=== PATIENT | female | born 1935 | race Caucasian/White ===

== ENCOUNTER 2016-08-31 17:25 | Inpatient (IN) | payer OTHER ==
[~2016-08-31] VITALS: Ht 157.5 cm; Wt 98.2 kg
[~2016-08-31 17:25] MED LIST: ALBU1NEB10 INH; ASCA500 PO; ASPEC325 PO; CLR10 PO; CLX20 PO; CYAN10005 PO; DOCU-94 PO; EVS60 PO; FRRG PO; GABA1CAP4 PO; GLC5 PO; GLC500 PO; HYDR-5688 PO; LEVO175T3 PO; LOSA1TAB38 PO; MAGN1CAP2 PO; MELA3TAB PO; METO25TA56 PO; MULT-506 PO; NRN300 PO; OXYB5TAB PO; OXYC-409 PO; POTA10CA28 PO; PRLSR20 PO; SITA50TA3 PO; VEGETABLE PO; ZCR10 PO; [UNRECOGNIZED DRUG - CODE] PO
[2016-08-31] MEDS ORDERED: LEVO112T4 PO (17:49)
[2016-08-31] MEDS ORDERED: GLCSR5 PO (17:49)
[2016-08-31] MEDS ORDERED: ADVIN25/60 PO (17:49)
[2016-08-31] MEDS ORDERED: NITROGLYCERIN OINT 2% 1GM PACKET EXT STA (17:55)
[2016-08-31 18:20] LABS: BASO % 0.3 %; BASO ABS # 0.03 K/uL (0-0.2); COMPLETE YES; EOS % 2.2 %; HEMATOCRIT 34.8 % (37-47); IG% 0.3 %; LYMPH % 32.2 %; LYMPH ABS # 2.84 K/uL (1.2-3.4); MEAN CELL VOLUME 88.1 fL (80-100); MEAN CORPUSCULAR HEMOGLOBIN 29.6 pg (25-34); MEAN CORPUSCULAR HGB CONC 33.6 g/dl (32-36); MEAN PLATELET VOLUME 9.3 fL (7.4-10.4); PLATELET COUNT 267 K/uL (130-400); RED BLOOD COUNT 3.95 M/uL (4.2-5.4); WHITE BLOOD COUNT 8.81 K/uL (4.8-10.8)
[2016-08-31 18:32] LABS: INR 1.1 (0.9-1.1); PARTIAL THROMBOPLASTIN RATIO 1.1; PROTHROMBIN TIME (PATIENT) 11.5 SECONDS (9.0-12.0)
[2016-08-31] MEDS ORDERED: NYSS/ PO (18:32)
[2016-08-31] MEDS ORDERED: CHOL1000 PO (18:32)
[2016-08-31] MEDS ORDERED: ASPI81TA28 PO (18:32)
[2016-08-31] MEDS ORDERED: NITROGLYCERIN OINT 2% 1GM PACKET ONE (18:32)
[2016-08-31 18:38] LABS: ALT/SGPT 39 U/L (12-78); BLOOD UREA NITROGEN 12 mg/dl (7-18); BUN/CREATININE RATIO 11.9 (10-20); CALCIUM 9.5 mg/dl (8.5-10.1); CARBON DIOXIDE 27 mmol/L (21-32); CHLORIDE 98 mmol/L (98-107); GLUCOSE 144 mg/dl (70-99); POTASSIUM 4.4 mmol/L (3.5-5.1); SODIUM 134 mmol/L (136-145)
--- NOTE | 2016-08-31 18:40 | DIAGNOSTIC IMAGING REPORT ---
ABDOMEN 2VIEW W/PA CHEST RTN CLINICAL HISTORY: Shortness of breath and abdominal pain COMPARISON STUDY: Chest x-ray dated 12/03/2007 FINDINGS: The heart is enlarged. There is elevation of the interstitium. There is distention of the azygos vein. The findings are most consistent with congestive failure. There is no free air. There are postsurgical changes present within the lumbar spine. There is evidence for prior spinal fusion. There is scattered stool within the colon. There are no transition zones indicate bowel obstruction. There is an old left ischio pubic ring fracture. There are nonspecific clustered calcifications in the right inferior peroneal/gluteal region. IMPRESSION: 1. No evidence of bowel obstruction. No evidence of free air 2. Congestive heart failure pattern Electronically signed by: Abhay Ferreira M.D. 08/31/2016 6:38 PM Dictated Date/Time: 08/31/2016 6:37 PM
[2016-08-31 18:43] LABS: ALB/GLOB RATIO 0.9 (0.9-2); ALKALINE PHOSPHATASE 66 U/L (45-117); AST/SGOT 36 U/L (15-37)
[2016-08-31] MEDS ORDERED: FUROSEMIDE INJ 20 MG in SYRINGE 0 ML IV SCH (19:45)
--- NOTE | 2016-08-31 20:31 | History and Physical ---
History & Physical Date & Time of Service: Aug 31, 2016 at 20:31 Chief Complaint: Fluid Retention, Congestion, Nausea, Loss Of Appet Primary Care Physician: Gregorio Saywer MD History of Present Illness Source: patient, family This is an 80 y/o F with a pmh of COPD, DM, HTN, CAD, Surgically repaired brain aneurysm (2003), chronic pain who presents with a several day history of progressively worsening swelling in her lower extremities and shortness of breath. Her son had taken her to her PCP's office 2 days ago as a follow up visit from her ER visit to [place] 3 weeks ago for gastroenteritis and at that point she did not look volume overloaded. However, today, her home health nurse at [facility], thought her legs were swollen and she was short of breath. He is unsure about weight gain. She does not have an official diagnosis of CHF. Her son also reports that she has fallen about 4 times in the past 2 weeks. Two episodes; may have been syncopal. The Patient also complains that her abdominal girth has increased. She has had poor appetite. Otherwise, denies chest pain, abdominal pain, nausea/ vomiting, fevers chills, urinary symptoms, changes in bowel habits, melena/hematochezia Never smoker. Past Medical/Surgical History Medical Problems: (1) Asthma Status: Chronic (2) COPD (chronic obstructive pulmonary disease) Status: Chronic Social History Smoking Status: Unknown if Ever Smoked Alcohol Use: none Drug Use: none Housing status: lives alone Occupational Status: retired Immunizations History of Influenza Vaccine: Yes Influenza Vaccine Date: Feb 25, 2007 History of Tetanus Vaccine?: Unknown History of Pneumococcal: Yes Pneumococcal Date: Feb 25, 2005 History of Hepatitis B Vaccine: Unknown Multi-Drug Resistant Organisms History of MDRO: Yes Allergies Coded Allergies: No Known Allergies (Verified , 08/31/16) Home Medications Scheduled Ascorbic Acid (Vitamin C), 500 MG PO QAM Aspirin (Aspirin Ec), 81 MG PO DAILY Cholecalciferol (Vitamin D3), 5,000 INTER.UNIT PO DAILY Citalopram (Citalopram Hydrobromide), 20 MG PO DAILY Cyanocobalamin (Vitamin B-12), 1,000 MCG PO DAILY Fluticasone Prop/Salmeterol (Advair Diskus 250/50 60 Dose), 1 PUFF PO BID Gabapentin (Gabapentin), 300 MG PO QAM Gabapentin (Gabapentin), 600 MG PO QPM Glipizide (Glipizide Xl), 5 MG PO DAILY Levothyroxine Sodium (Levothyroxine Sodium), 112 MCG PO QAM Loratadine (Claritin), 10 MG PO DAILY Losartan Potassium (Cozaar), 100 MG PO DAILY Magnesium Oxide (Mg Supplement (Magnesium), 400 MG PO BID Metformin HCl (Metformin HCl), 1,000 MG PO DAILY Metoprolol Tartrate (Lopressor) (Lopressor), 50 MG PO BID Multivitamin (Multivitamin), 1 TAB PO DAILY Nystatin (Nystatin Suspension), 1 TSP PO DAILY Omeprazole (Prilosec), 20 MG PO BID Oxybutynin Chloride (Oxybutynin Chloride Er), 10 MG PO DAILY Potassium Chloride (Micro-K Ext Rel), 10 MEQ PO DAILY Simvastatin (Simvastatin), 10 MG PO HS Sitagliptin (Januvia), 50 MG PO DAILY Scheduled PRN Albuterol Sulf (Albuterol Sulfate 0.083% For Inh), 3 ML INH Q4H PRN for Shortness of Breath Docusate Sodium (Colace), 100 MG PO DAILY PRN for Constipation Review of Systems Constitutional: No chills, No fever Eyes: No worsening of vision ENT: No hearing loss Respiratory: + dyspnea at rest, + dyspnea on exertion, + shortness of breath, No cough, No sputum, No wheezing Cardiovascular: No chest pain Abdomen: No nausea, No pain, No vomiting Genitourinary - Female: No dysuria, No urinary frequency, No urinary urgency Physical Exam Vital Signs Date Time Temp Pulse Resp B/P Pulse Ox O2 Delivery O2 Flow Rate FiO2 08/31/16 18:50 58 18 173/77 94 Room Air 2.0 08/31/16 18:00 58 08/31/16 17:55 94 Room Air 08/31/16 17:55 94 Nasal Cannula 2.0 08/31/16 17:51 59 18 207/99 94 Nasal Cannula 2.0 08/31/16 17:33 36.8 64 22 212/98 92 Room Air General Appearance: no apparent distress, + obese Head: normocephalic, atraumatic Eyes: PERRL, EOMI Neck: supple, no adenopathy Respiratory/Chest: no respiratory distress, no accessory muscle use, + decreased breath sounds, + crackles Cardiovascular: regular rate, rhythm, no JVD, + systolic murmur Abdomen/GI: normal bowel sounds, non tender, soft, + pertinent finding ( excoriations, erythema, whitish residue below panus) Back: no CVA tenderness Extremities/Musculoskelatal: no calf tenderness, + pedal edema (2+ pitting, below knees) Neurologic/Psych: marketing services vice president II-XII nml as tested, no motor/sensory deficits, alert, oriented x 3 Diagnostics Laboratory Results Results Past 24 Hours Test 08/31/16 17:55 Range/Units White Blood Count 8.81 4.8-10.8 K/uL Red Blood Count 3.95 4.2-5.4 M/uL Hemoglobin 11.7 12.0-16.0 g/dL Hematocrit 34.8 37-47 % Mean Corpuscular Volume 88.1 80-100 fL Mean Corpuscular Hemoglobin 29.6 25-34 pg Mean Corpuscular Hemoglobin Concent 33.6 32-36 g/dl Platelet Count 267 130-400 K/uL Mean Platelet Volume 9.3 7.4-10.4 fL Neutrophils (%) (Auto) 55.0 % Lymphocytes (%) (Auto) 32.2 % Monocytes (%) (Auto) 10.0 % Eosinophils (%) (Auto) 2.2 % Basophils (%) (Auto) 0.3 % Neutrophils # (Auto) 4.84 1.4-6.5 K/uL Lymphocytes # (Auto) 2.84 1.2-3.4 K/uL Monocytes # (Auto) 0.88 0.11-0.59 K/uL Eosinophils # (Auto) 0.19 0-0.5 K/uL Basophils # (Auto) 0.03 0-0.2 K/uL RDW Standard Deviation 51.9 36.4-46.3 fL RDW Coefficient of Variation 16.0 11.5-14.5 % Immature Granulocyte % (Auto) 0.3 % Immature Granulocyte # (Auto) 0.03 0.00-0.02 K/uL Prothrombin Time 11.5 9.0-12.0 SECONDS Prothromb Time International Ratio 1.1 0.9-1.1 Activated Partial Thromboplast Time 27.7 21.0-31.0 SECONDS Partial Thromboplastin Ratio 1.1 Sodium Level 134 136-145 mmol/L Potassium Level 4.4 3.5-5.1 mmol/L Chloride Level 98 98-107 mmol/L Carbon Dioxide Level 27 21-32 mmol/L Anion Gap 9.0 3-11 mmol/L Blood Urea Nitrogen 12 7-18 mg/dl Creatinine 1.00 0.60-1.20 mg/dl Estimated GFR () 60.8 Estimated GFR (Non- 52.4 BUN/Creatinine Ratio 11.9 10-20 Random Glucose 144 70-99 mg/dl Calcium Level 9.5 8.5-10.1 mg/dl Total Bilirubin 0.5 0.2-1 mg/dl Aspartate Amino Transf (AST/SGOT) 36 15-37 U/L Alanine Aminotransferase (ALT/SGPT) 39 12-78 U/L Alkaline Phosphatase 66 45-117 U/L Troponin I < 0.015 0-0.045 ng/ml Pro-B-Type Natriuretic Peptide 2412 0-1800 pg/ml Total Protein 7.2 6.4-8.2 gm/dl Albumin 3.5 3.4-5.0 gm/dl Globulin 3.7 2.5-4.0 gm/dl Albumin/Globulin Ratio 0.9 0.9-2 Impression Assessment and Plan Fluid overload; probable undiagnosed CHF ECHO Lasix 40 qam as long kidney function remains stable- can switch to BID if not diuresing enough Daily weights strict i/o Chest Xray and lung exam with evidence of HF troponin x 3 EKG AM Ambulatory dysfunction PT/OT Thrush Nystatin swish and swallow HTN: Continue Losartan DM ISS Accuchecks Lantus 10 units on hold, if needed based on blood sugars Hold glipizide Hypothyroid TSH elevated at 6 Recommend outpatient follow up and adjustment of dose continue levothyroxine COPD Continue albuterol and Advair CAD Continue aspirin, simvastatin, metoprolol DVT: Lovenox Code: Full Assessment and Plan Attending Addendum: This I have physically seen and examined this patient, have directed their medical care, have supervised the medical residents activities, and agree with the H&P as noted above, with the following changes: The patient is awake, alert and oriented 3, normocephalic and atraumatic, lying in bed and in no acute distress. HEENT--PERRL, EOMI, mucous membranes and oropharynx with thrush. Neck--supple, no JVD or bruits, thyroid normal, trachea midline, no adenopathy. Heart--normal S1 and S2, SM, no rubs or gallops. Lungs--crackles at the bases bilaterally, no respiratory distress, no accessory muscle use. Abdomen--normal bowel sounds and soft, nontender and nondistended, no hernias or masses, no organomegaly. Extremities--no cyanosis, clubbing. 2+ pretibial and pedal pitting edema. There are good distal pulses b/l. Dermatologic--excoriations and erythema below skinfolds and pannus. Neurologic--cranial nerves II through XII grossly intact, motor and sensory examination normal. Rheumatologic--normal range of motion, nontender, muscles and joints. Psychiatric--normal affect. Assessment and Plan: Fluid overload/likely previously undiagnosed CHF/hypertension--admitted to the telemetry unit for serial cardiac enzymes, cardiac rhythm monitoring and a 2-D echocardiogram with Dopplers. Given Lasix 40 mg IV tonight, change to by mouth in the a.m. if adequate diuresis. Follow serial chest x-rays and EKGs. Continue metoprolol tartrate 50 mg by mouth twice a day, losartan 100 mg by mouth daily, potassium chloride 10 mEq by mouth daily, mag oxide 40 mg by mouth twice a day, and enteric-coated aspirin 81 mg by mouth daily. Thrush--placed on nystatin swish and swallow. Diabetes mellitus--hold Lantus, metformin, Januvia and glipizide. Place on Accu -Cheks before meals and at bedtime with NovoLog coverage. Asthma--continue Advair discus 250/50, 1 inhalation twice a day Hypothyroidism--continue levothyroxin 112 g by mouth every morning. May need adjustment in the outpatient setting for a TSH of 6. GERD--change omeprazole 20 mg by mouth twice a day pantoprazole 40 mg by mouth twice a day. Peripheral neuropathy--continue gabapentin 3 mg by mouth every morning and 6 mg by mouth every afternoon. Hypercholesterolemia--continue simvastatin 10 mg by mouth at bedtime. Bladder spasm-- continue oxybutynin chloride ER 10 mg by mouth daily. Vitamin B12 deficiency--continue supplement 1000 g by mouth daily. Depression--continue citalopram 20 mg by mouth daily.
[2016-08-31] MEDS ORDERED: DOCUSATE SODIUM 100 MG CAP PO PRN (20:45)
[2016-08-31] MEDS ORDERED: MAGNESIUM HYDROXIDE SUSP 30 ML UDC PO PRN (20:45)
[2016-08-31] MEDS ORDERED: ALBUTEROL 0.083% NEBU SOLN 3 ML VIAL INH PRN (20:45)
[2016-08-31] MEDS ORDERED: ALUMINUM/MAGNESIUM/SIMETH (MAALOX MAX) 30 ML UDC PO PRN (20:45)
[2016-08-31] MEDS ORDERED: HydrALAZINE HCL 20 MG/ML VIAL IV. PRN (20:45)
[2016-08-31] MEDS ORDERED: ACETAMINOPHEN 325 MG TAB PO PRN (20:45)
[2016-08-31] MEDS ORDERED: ONDANSETRON INJ 2 MG/ML 2 ML VIAL IV PRN (20:45)
[2016-08-31] MEDS ORDERED: NITROGLYCERIN 0.4 MG SL PER TAB CHARGE SL PRN (20:45)
[2016-08-31] MEDS ORDERED: POLYETHYLENE (MIRALAX) 17 GM PACK PO PRN (20:45)
[2016-08-31] MEDS ORDERED: MoRPHine SULFATE 2 MG/ML CARP IV PRN (20:45)
[2016-08-31 20:50] LABS: URINE APPEARANCE CLEAR (CLEAR); URINE BILIRUBIN NEG (NEG); URINE COLOR YELLOW; URINE NITRITE NEG (NEG); UROBILINOGEN NEG (NEG)
[2016-08-31 20:57] LABS: MANUAL MICROSCOPIC REQUIRED? NO; REVIEW REQ? NO
[2016-08-31] MEDS ORDERED: MAGNESIUM OXIDE PO SCH (21:00)
[2016-08-31 21:56] VITALS: BP 178/94; PULSE 70; TEMP 36.8; O2SAT 97; Ht 157.5 cm; Wt 98.2 kg
[2016-08-31] MEDS ORDERED: PATIENT'S HEIGHT AND/OR WEIGHT NEEDED SCH (22:00)
[2016-08-31] MEDS: INSULIN ASPART 100 UNITS/ML 3 ML PEN SC SCH (22:33)
[2016-08-31] MEDS: FLUTICASONE/SALMETEROL 250/50 (ADVAIR) 14 PUFF/1 INHALER INH SCH (22:33)
[2016-08-31] MEDS ORDERED: NYSTATIN POWDER 15GM BTL EXT PRN (22:45)
[2016-08-31] MEDS: GABAPENTIN 300 MG CAP PO SCH (22:49)
[2016-08-31] MEDS: SIMVASTATIN 10 MG TAB PO SCH (22:49)
[2016-08-31 23:00] VITALS: BP 162/85; PULSE 63; TEMP 37.5; O2SAT 98
[2016-09-01] VITALS (7 sets, daily range): BP systolic 111–166; BP diastolic 59–104; PULSE 59–69; TEMP 36.4–37.1; O2SAT 91–99
--- NOTE | 2016-09-01 00:45 | EMERGENCY ROOM VISIT NOTE ---
History Report prepared by Adriana: Corinne Rivera Under the Supervision of: Dr. Aiden Li D.O. First contact with patient: 17:37 Chief Complaint: SWELLING TO EXTREMITY Stated Complaint: FLUID RETENTION, CONGESTION, NAUSEA, LOSS OF APPET History of Present Illness The patient is a 80 year old female who presents to the Emergency Room with complaints of constant feet swelling beginning 2 days ago. The patient's son reports that the patient lives in a personal custodial and was seen in the ER recently for a GI bug and dehydration. He notes that 1 week ago the patient fell 4 times and 2 days ago they had a follow-up appointment with her doctor to discuss her recent issues. Today the patient states that her nurse noticed her swelling and wanted her to be seen in the ED. The patient states that she does not wear oxygen during the day at home but has a sleeping mask. Her son reports that she is normally able to walk around with a cane on her own. The patient complains of a of hard abdomen beginning yesterday, burping, recent falls, not eating well, and shortness of breath from her COPD. She denies any chest pain, history of heart failure, and history of smoking. The patient states that it is August of 1971 and the son reports that this is baseline for her. Source of History: patient, family Onset: 2 days ago Position: foot (bilateral) Quality: other (swelling) Timing: constant Associated Symptoms: + SOB, No chest pain Note: The patient complains of a of hard abdomen beginning yesterday, burping, recent falls, not eating well. She denies any history of heart failure, and history of smoking. Review of Systems See HPI for pertinent positives & negatives. A total of 10 systems reviewed and were otherwise negative. Past Medical & Surgical Medical Problems: (1) Asthma (2) COPD (chronic obstructive pulmonary disease) (3) Shortness of breath (4) Swelling of lower extremity Family History No pertinent family history stated. Social History Smoking Status: Never Smoker Housing Status: half-way Occupation Status: retired Current/Historical Medications Scheduled Ascorbic Acid (Vitamin C), 500 MG PO QAM Aspirin (Aspirin Ec), 81 MG PO DAILY Cholecalciferol (Vitamin D3), 5,000 INTER.UNIT PO DAILY Citalopram (Citalopram Hydrobromide), 20 MG PO DAILY Cyanocobalamin (Vitamin B-12), 1,000 MCG PO DAILY Fluticasone Prop/Salmeterol (Advair Diskus 250/50 60 Dose), 1 PUFF PO BID Gabapentin (Gabapentin), 300 MG PO QAM Gabapentin (Gabapentin), 600 MG PO QPM Glipizide (Glipizide Xl), 5 MG PO DAILY Levothyroxine Sodium (Levothyroxine Sodium), 112 MCG PO QAM Loratadine (Claritin), 10 MG PO DAILY Losartan Potassium (Cozaar), 100 MG PO DAILY Magnesium Oxide (Mg Supplement (Magnesium), 400 MG PO BID Metformin HCl (Metformin HCl), 1,000 MG PO DAILY Metoprolol Tartrate (Lopressor) (Lopressor), 50 MG PO BID Multivitamin (Multivitamin), 1 TAB PO DAILY Nystatin (Nystatin Suspension), 1 TSP PO DAILY Omeprazole (Prilosec), 20 MG PO BID Oxybutynin Chloride (Oxybutynin Chloride Er), 10 MG PO DAILY Potassium Chloride (Micro-K Ext Rel), 10 MEQ PO DAILY Simvastatin (Simvastatin), 10 MG PO HS Sitagliptin (Januvia), 50 MG PO DAILY Scheduled PRN Albuterol Sulf (Albuterol Sulfate 0.083% For Inh), 3 ML INH Q4H PRN for Shortness of Breath Docusate Sodium (Colace), 100 MG PO DAILY PRN for Constipation Allergies Coded Allergies: No Known Allergies (Verified , 08/31/16) Physical Exam Vital Signs Date Time Temp Pulse Resp B/P Pulse Ox O2 Delivery O2 Flow Rate FiO2 08/31/16 20:00 75 20 131/101 98 Nasal Cannula 4.0 08/31/16 18:50 58 18 173/77 94 Room Air 2.0 08/31/16 18:00 58 08/31/16 17:55 94 Room Air 08/31/16 17:55 94 Nasal Cannula 2.0 08/31/16 17:51 59 18 207/99 94 Nasal Cannula 2.0 08/31/16 17:33 36.8 64 22 212/98 92 Room Air Physical Exam GENERAL: Patient is morbidly obese and chronically ill appearing, sitting in wheelchair, unable to transfer to bed, dyspneic with conversation EYE EXAM: normal conjunctiva OROPHARYNX: no exudate, no erythema, lips, buccal mucosa, and tongue normal and mucous membranes are moist NECK: supple, no nuchal rigidity, no adenopathy, non-tender, unappreciated JVD LUNGS: Coarse breath sounds at bilateral bases. Normal chest wall mechanics HEART: no murmurs, S1 normal and S2 normal ABDOMEN: abdomen obese, soft, non-tender, normo-active bowel sounds, no masses, no rebound or guarding. BACK: Back is symmetrical on inspection and there is no deformity, no midline tenderness, no CVA tenderness. SKIN: Diffuse bruising on the back and upper extremities, erythema within her abdominal pannus and groin UPPER EXTREMITIES: upper extremities are grossly normal. LOWER EXTREMITIES: Pitting edema tracking up to thighs. NEURO EXAM: Oriented to place, not year, no gross weakness in the upper or lower extremities, cranial nerves II-XII intact Medical Decision & Procedures ER Provider Diagnostic Interpretation: Radiology results as stated below per my review and the radiologist's interpretation: ABDOMEN 2VIEW W/PA CHEST RTN FINDINGS: The heart is enlarged. There is elevation of the interstitium. There is distention of the azygos vein. The findings are most consistent with congestive failure. There is no free air. There are postsurgical changes present within the lumbar spine. There is evidence for prior spinal fusion. There is scattered stool within the colon. There are no transition zones indicate bowel obstruction. There is an old left ischio pubic ring fracture. There are nonspecific clustered calcifications in the right inferior peroneal/gluteal region. IMPRESSION: 1. No evidence of bowel obstruction. No evidence of free air 2. Congestive heart failure pattern Electronically signed by: Abhay Ferreira M.D. 08/31/2016 6:38 PM Dictated Date/Time: 08/31/2016 6:37 PM Laboratory Results 08/31/16 17:55 Red Blood Count 3.95, Mean Corpuscular Volume 88.1, Mean Corpuscular Hemoglobin 29.6, Mean Corpuscular Hemoglobin Concent 33.6, Mean Platelet Volume 9.3, Neutrophils (%) (Auto) 55.0, Lymphocytes (%) (Auto) 32.2, Monocytes (%) (Auto) 10.0, Eosinophils (%) (Auto) 2.2, Basophils (%) (Auto) 0.3, Neutrophils # (Auto ) 4.84, Lymphocytes # (Auto) 2.84, Monocytes # (Auto) 0.88, Eosinophils # (Auto ) 0.19, Basophils # (Auto) 0.03 08/31/16 17:55 Test 08/31/16 17:55 08/31/16 20:30 White Blood Count 8.81 K/uL (4.8-10.8) Red Blood Count 3.95 M/uL (4.2-5.4) Hemoglobin 11.7 g/dL (12.0-16.0) Hematocrit 34.8 % (37-47) Mean Corpuscular Volume 88.1 fL (80-100) Mean Corpuscular Hemoglobin 29.6 pg (25-34) Mean Corpuscular Hemoglobin Concent 33.6 g/dl (32-36) Platelet Count 267 K/uL (130-400) Mean Platelet Volume 9.3 fL (7.4-10.4) Neutrophils (%) (Auto) 55.0 % Lymphocytes (%) (Auto) 32.2 % Monocytes (%) (Auto) 10.0 % Eosinophils (%) (Auto) 2.2 % Basophils (%) (Auto) 0.3 % Neutrophils # (Auto) 4.84 K/uL (1.4-6.5) Lymphocytes # (Auto) 2.84 K/uL (1.2-3.4) Monocytes # (Auto) 0.88 K/uL (0.11-0.59) Eosinophils # (Auto) 0.19 K/uL (0-0.5) Basophils # (Auto) 0.03 K/uL (0-0.2) RDW Standard Deviation 51.9 fL (36.4-46.3) RDW Coefficient of Variation 16.0 % (11.5-14.5) Immature Granulocyte % (Auto) 0.3 % Immature Granulocyte # (Auto) 0.03 K/uL (0.00-0.02) Prothrombin Time 11.5 SECONDS (9.0-12.0) Prothromb Time International Ratio 1.1 (0.9-1.1) Activated Partial Thromboplast Time 27.7 SECONDS (21.0-31.0) Partial Thromboplastin Ratio 1.1 Anion Gap 9.0 mmol/L (3-11) Estimated GFR () 60.8 Estimated GFR (Non- 52.4 BUN/Creatinine Ratio 11.9 (10-20) Calcium Level 9.5 mg/dl (8.5-10.1) Total Bilirubin 0.5 mg/dl (0.2-1) Aspartate Amino Transf (AST/SGOT) 36 U/L (15-37) Alanine Aminotransferase (ALT/SGPT) 39 U/L (12-78) Alkaline Phosphatase 66 U/L (45-117) Pro-B-Type Natriuretic Peptide 2412 pg/ml (0-1800) Total Protein 7.2 gm/dl (6.4-8.2) Albumin 3.5 gm/dl (3.4-5.0) Globulin 3.7 gm/dl (2.5-4.0) Albumin/Globulin Ratio 0.9 (0.9-2) Thyroid Stimulating Hormone (TSH) 6.980 uIu/ml (0.300-4.500) Urine Color YELLOW Urine Appearance CLEAR (CLEAR) Urine pH 6.0 (4.5-7.5) Urine Specific [place] 1.010 (1.000-1.030) Urine Protein 2+ (NEG) Urine Glucose (UA) NEG (NEG) Urine Ketones NEG (NEG) Urine Occult Blood NEG (NEG) Urine Nitrite NEG (NEG) Urine Bilirubin NEG (NEG) Urine Urobilinogen NEG (NEG) Urine Leukocyte Esterase NEG (NEG) Urine WBC (Auto) 1-5 /hpf (0-5) Urine RBC (Auto) 0-4 /hpf (0-4) Urine Hyaline Casts (Auto) 0 /lpf (0-5) Urine Epithelial Cells (Auto) 10-20 /lpf (0-5) Urine Bacteria (Auto) NEG (NEG) Laboratory results per my review. Medications Administered Medications (Trade) Dose Ordered Sig/Deborah Route Start Time Stop Time Status Last Admin Dose Admin Nitroglycerin (Nitroglycerin 2% Oint) 2 inch Q6H STAT EXT 08/31/16 17:55 08/31/16 17:56 DC 08/31/16 18:50 2 INCH ECG Indication: other (swelling) Rate (beats per minute): 67 Rhythm: atrial fibrillation Findings: Q waves (Septal and Inferior) ED Course ED COURSE: Vital signs were reviewed and showed hypertension The patients medical record was reviewed The above diagnostic studies were performed and reviewed. ED treatments and interventions as stated above. 1737: The patient was evaluated in room B2. A complete history and physical examination was performed. 1754: Nitroglycerin 2 inch EXT. 1831: Nitroglycerin 2 inch EXT. 1944: Furosemide 20mg/Syringe 2ml @ 4mls/min IV. 2036: I reviewed the patient's case with Dr. Gleason. He will evaluate the patient for further management. 2044: Upon reevaluation, the patient is hemodynamically stable. I discussed my findings with the patient and he understands and agrees with the treatment plan. Based on the patients age, coexisting illnesses, exam and lab findings the decision to treat as an inpatient was made. The patient remained stable while under my care. The patient will be evaluated for further management. Medical Decision Differential diagnoses includes but is not limited to pneumonia, bronchitis, COPD/Asthma exacerbation, pneumothorax, pulmonary embolism, congestive heart failure, acute coronary syndrome Patient is an 80-year-old female who presents the ER for diffuse weakness. She is unable to transfer to the bed. Also oxygen is 88-91% on room air and she drops with any movement. Labs show no significant leukocytosis or anemia. BMP along with LFTs, bilirubin and troponin are negative. BNP is elevated at 2500. UA was negative. Chest x-ray shows CHF. No obstruction on abdominal series. Based on her exam, weight gain, and pitting edema, I favor this is likely secondary to CHF. Patient was placed on Nitropaste as she was extremely hypertensive and was admitted to internal medicine likely heart failure. She did rest comfortably in the ER. She is no wheezing on exam but does have coarse breath sounds in the bases. She does have a history of COPD. Consults Time Called: 2029 Consulting Physician: Dr. Gleason Returned Call: [phone] I reviewed the patient's case with Dr. Gleason. He will evaluate the patient for further management. Impression Primary Impression: Shortness of breath Additional Impressions: CHF (congestive heart failure) Asthma Anemia Scribe Attestation The scribe's documentation has been prepared under my direction and personally reviewed by me in its entirety. I confirm that the note above accurately reflects all work, treatment, procedures, and medical decision making performed by me. Departure Information Dispostion Being Evaluated By Hospitalist Referrals Gregorio Sawyer MD (PCP) Patient Instructions My [facility] Problem Qualifiers Additional Impressions: CHF (congestive heart failure) Congestive heart failure type: unspecified congestive heart failure type Congestive heart failure chronicity: acute Qualified Codes: I50.9 - Heart failure, unspecified Asthma Asthma severity: unspecified severity Asthma complication type: uncomplicated Qualified Codes: J45.909 - Unspecified asthma, uncomplicated Anemia Anemia type: unspecified type Qualified Codes: D64.9 - Anemia, unspecified
[2016-09-01 06:17] LABS: BUN/CREATININE RATIO 10.7 (10-20); CALCIUM 9.1 mg/dl (8.5-10.1); CREATININE 0.93 mg/dl (0.60-1.20); POTASSIUM 4.1 mmol/L (3.5-5.1)
[2016-09-01] MEDS: LEVOTHYROXINE 112 MCG TAB PO SCH (06:17)
[2016-09-01] MEDS: INSULIN ASPART 100 UNITS/ML 3 ML PEN SC SCH ×4 (07:00→20:34)
[2016-09-01] MEDS: ASPIRIN 81 MG ECTAB PO SCH (07:26)
[2016-09-01] MEDS: GABAPENTIN 300 MG CAP PO SCH ×2 (07:27→20:35)
[2016-09-01] MEDS: FLUTICASONE/SALMETEROL 250/50 (ADVAIR) 14 PUFF/1 INHALER INH SCH ×2 (07:27→20:35)
[2016-09-01] MEDS: METOPROLOL TARTRATE 25 MG TAB PO SCH ×2 (07:28→20:35)
[2016-09-01] MEDS: LORATADINE 10 MG TAB PO SCH (07:28)
[2016-09-01] MEDS: NYSTATIN SUSP 500,000 U/5 ML UDC PO SCH (07:29)
[2016-09-01] MEDS: PANTOprazole SOD 40 MG TAB PO SCH (07:29)
[2016-09-01] MEDS: LOSARTAN POTASSIUM 50 MG TAB PO SCH (07:29)
[2016-09-01] MEDS: OXYBUTYNIN CHLORIDE 5 MG TABCR PO SCH (07:30)
[2016-09-01] MEDS: POTASSIUM CHLORIDE 10 MEQ TABCR PO SCH (07:30)
[2016-09-01] MEDS: CITALOPRAM 20 MG TAB PO SCH (07:30)
[2016-09-01] MEDS: ENOXAPARIN 40 MG/0.4 ML SYR SC SCH (07:31)
--- NOTE | 2016-09-01 08:04 | Clinical Documentation Query ---
CLINICAL DOCUMENTATION QUERY 80 year old female who presents to the Emergency Room with complaints of constant feet swelling beginning 2 days prior to admission. Query #1/3 In your clinical opinion is this patient being managed for: ( x ) Suspected Acute diastolic (Preserved EF) heart failure in setting of hypertensive heart disease treated with IV Lasix and antihypertensives. ( ) Other explanation of clinical findings (Please Explain) ( ) Unable to determine (Please Define) ( ) Need to Discuss ( ) Not Agree ( ) Diastolic CHF with preserved EF The medical record reflects the following clinical findings, treatment, and risk factors. Clinical Indicators: As above. CXR with cardiomegaly and a congestive heart failure pattern. Hypertension (212/98), decreased breath sounds and crackles. Treatment: telemetry, IV Lasix, strict I/O's, daily weights, Echo, IV Hydralazine, Losartan, and Lopressor. Risk Factors: Age, HTN, edema. Query #2/3 In your clinical opinion is this patient being managed for: ( x ) Acute respiratory failure with hypoxia in setting of CHF treated with O2 and IV diuretic ( ) Other explanation of clinical findings (Please Explain) ( ) Unable to determine (Please Define) ( ) Need to Discuss ( ) Not Agree The medical record reflects the following clinical findings, treatment, and risk factors. Clinical Indicators: Per ED patient presented with conversational dyspnea and coarse breath sounds. Requiring 4L of NC O2. Treatment: O2, telemetry, IV Lasix, Risk Factors: Age, CHF, Query #3/3 In your clinical opinion is this patient being managed for: ( x ) CKD 3 in setting of hypertensive heart disease. ( ) Other explanation of clinical findings (Please Explain) ( ) Unable to determine (Please Define) ( ) Need to Discuss ( ) Not Agree The medical record reflects the following clinical findings, treatment, and risk factors. Clinical Indicators: GFR 52.4, HTN 212/98, Treatment: daily PRP's Risk Factors: Age, HTN, DM, and CAD Please clarify and document your clinical opinion in the progress notes and discharge summary. Terms such as "probable", "suspected", "likely", "questionable", "possible", or "still to be ruled out" are acceptable. IF IN AGREEMENT, YOU MUST DOCUMENT ABOVE DIAGNOSTIC STATEMENT IN DAILY PROGRESS NOTES AND DISCHARGE SUMMARY. This document is not part of the patient's record. Chronic Kidney Disease (CKD), stages 1-5. Documenting the stage of CKD will improve data integrity and will help clarify vague terms such as "renal insufficiency" or "chronic renal failure." The stages of CKD according to the [employer] are as follows: Stage I: GFR >90 Stage II: GFR 60-89 Stage III: GFR 30-59 Stage IV: GFR 15-29 Stage V: GFR <15 Thank You, Cj Garcia, RN [phone]
[2016-09-01] MEDS: FUROSEMIDE INJ 40 MG in SYRINGE 0 ML IV SCH (09:37)
--- NOTE | 2016-09-01 10:46 | ECHOCARDIOGRAM REPORT ---
*NOTICE TO RECEIVING LIBERTARIAN AGENCY This information is strictly Confidential and protected under [place] law. [place] law prohibits you from making any further disclosure of this information unless further disclosure is expressly permitted by the written consent of the person to whom it pertains or is authorized by law. A general authorization for the release of medical or other information is not sufficient for this purpose. Hospital accepts no responsibility if the information is made available to any other person, INCLUDING THE PATIENT. Interpretation Summary * Name: NEFTALY HAGAN Study Date: 09/01/2016 06:50 AM BP: 166/79 mmHg * Patient Location: C.2E\S\E203\S\1 HR: 66 * : 1935 (M/d/yyyy) Gender: Female Height: 62 in * Age: 80 yrs Ethnicity: [place] Weight: 230 lb * Ordering Physician: Janina Ye * Performed By: Maren Farias RDCS * * Reason For Study: Congestive heart failure * BSA: 2.0 m2 * -- Conclusions -- * 1. Small LV cavity with moderate concentric LVH. * 2. Normal LV systolic function. LVEF 55-60%. No regional wall motion abnormalities. * 3. Normal RV size and function. * 4. Grade II diastolic dysfunction. * 5. Mild aortic stenosis (low flow, low gradient) * 6. Mild mitral regurgitation. * 7. No prior studies for comparison. Procedure Details * A complete two-dimensional transthoracic echocardiogram was performed (2D, M-mode, Doppler and color flow Doppler). Left Ventricle * The left ventricular cavity is small. * There is moderate concentric left ventricular hypertrophy. * Ejection Fraction = 55-60%. * No regional wall motion abnormalities noted. Right Ventricle * The right ventricle is grossly normal size. * The right ventricular systolic function is normal as assessed by tricuspid annular plane systolic excursion (TAPSE) (normal >1.5 cm). Atria * The left atrium is severely dilated. * The right atrium is severely dilated. * No ASD detected; PFO is not assessed. Mitral Valve * There is mild mitral annular calcification. * There is no mitral valve stenosis. * There is mild mitral regurgitation. Tricuspid Valve * The tricuspid valve is not well visualized, but is grossly normal. * Significant tricuspid regurgitation is absent. Aortic Valve * Aortic valve calcified, thickened and restricted. * Mild valvular aortic stenosis. * Aortic valve stenosis appears mild by 2D (Low gradient in the setting of low output) * There is no significant aortic regurgitation. Pulmonic Valve * The pulmonary valve is not well seen, but the Doppler examination is normal without significant regurgitation or stenosis. Great Vessels * The aortic root and proximal ascending aorta are normal sized. Pericardium/Pleural * There is no pericardial effusion. Great Vessels * IVC 2.0, < 50% change with respiration. Est RA 8 mmHg Left Ventricular Diastolic Function * Diastolic dysfunction, Grade II, consistent with elevated left atrial pressure. MMode 2D Measurements and Calculations IVSd 1.4 cm LVIDd 4.2 cm LVIDs 2.8 cm LVPWd 1.4 cm IVS/LVPW 1.0 FS 32.7 % EDV(Teich) 77.2 ml ESV(Teich) 29.6 ml EF(Teich) 61.6 % EDV(cubed) 72.4 ml ESV(cubed) 22.0 ml EF(cubed) 69.6 % LV mass(C)d 214.4 grams LV mass(C)dI 105.7 grams/m\S\2 CO(Teich) 3.2 l/min CI(Teich) 1.6 l/min/m\S\2 SV(Teich) 47.5 ml SI(Teich) 23.4 ml/m\S\2 CO(cubed) 3.4 l/min CI(cubed) 1.7 l/min/m\S\2 SV(cubed) 50.4 ml SI(cubed) 24.8 ml/m\S\2 Ao root diam 2.9 cm Ao root area 6.5 cm\S\2 ACS 10 cm LA dimension 4.0 cm asc Aorta Diam 3.1 cm LA/Ao 1.4 LVAd ap4 22.7 cm\S\2 LVLd ap4 7.7 cm EDV(MOD-sp4) 55.5 ml LVAs ap4 12.3 cm\S\2 LVLs ap4 6.0 cm ESV(MOD-sp4) 21.3 ml EF(MOD-sp4) 61.6 % LVAd ap2 18.3 cm\S\2 LVLd ap2 6.7 cm EDV(MOD-sp2) 40.3 ml LVAs ap2 11.2 cm\S\2 LVLs ap2 6.2 cm ESV(MOD-sp2) 17.7 ml EF(MOD-sp2) 56.1 % CO(MOD-sp4) 2.3 l/min CI(MOD-sp4) 1.1 l/min/m\S\2 SV(MOD-sp4) 34.2 ml SI(MOD-sp4) 16.9 ml/m\S\2 CO(MOD-sp2) 1.5 l/min CI(MOD-sp2) 0.76 l/min/m\S\2 SV(MOD-sp2) 22.6 ml SI(MOD-sp2) 11.1 ml/m\S\2 Doppler Measurements and Calculations MV E max luis 136.5 cm/sec MV A max luis 53.3 cm/sec MV E/A 2.6 MV dec time 0.16 sec Ao V2 max 212.2 cm/sec Ao max PG 18.0 mmHg Ao max PG (full) 15.7 mmHg Ao V2 mean 138.3 cm/sec Ao mean PG 8.9 mmHg Ao V2 VTI 39.0 cm LV V1 max PG 2.3 mmHg LV V1 max 75.9 cm/sec MR max luis 588.1 cm/sec MR max PG 138.3 mmHg MR mean luis 477.8 cm/sec MR mean PG 99.2 mmHg MR VTI 208.6 cm SV(Ao) 253.1 ml SI(Ao) 124.8 ml/m\S\2 PA V2 max 86.9 cm/sec PA max PG 3.0 mmHg PA acc slope 652.9 cm/sec\S\2 PA acc time 0.08 sec TR max luis 302.4 cm/sec PA pr(Accel) 42.6 mmHg
[2016-09-01 14:12] LABS: ESTIMATED AVERAGE GLUCOSE 160 mg/dl; HA1C FLAG Normal (Normal)
--- NOTE | 2016-09-01 18:44 | Family Medicine Progress Note ---
Progress Note Date of Service Sep 01, 2016. Subjective Pt evaluation today including: conversation w/ patient, physical exam, lab review, review of studies Patient was seen at the bedside. She was comfortably sitting down on her chair. She states that she is feeling better than yesterday. Still have SOB and b/l lower extremities swelling. Also complains of abdominal distension. Tolerating PO intake well. She lives in personal fci. Her Son lives about 40minutes away from her. She visits cardiology regularly in [place]. Last visit was about 3 months ago. Constitutional: No fever Respiratory: + dyspnea at rest, + dyspnea on exertion, + shortness of breath , No cough, No wheezing Cardiovascular: + edema, No chest pain Abdomen: No constipation, No diarrhea, No nausea, No pain, No vomiting Musculoskeletal: No muscle pain Skin: No rash Medications Current Inpatient Medications Medications (Trade) Dose Ordered Sig/Deborah Route Start Time Stop Time Status Last Admin Dose Admin Enoxaparin Sodium (Lovenox Inj) 40 mg Q24H SC 09/01/16 09:00 10/01/16 08:59 09/01/16 07:31 40 MG Acetaminophen (Tylenol Tab) 650 mg Q4H PRN PO 08/31/16 20:45 09/30/16 20:44 Al Hydrox/Mg Hydrox/Simethicone (Maalox Max Susp) 15 ml Q4H PRN PO 08/31/16 20:45 09/30/16 20:44 Magnesium Hydroxide (Milk Of Magnesia Susp) 30 ml Q12H PRN PO 08/31/16 20:45 09/30/16 20:44 Ondansetron HCl (Zofran Inj) 4 mg Q6H PRN IV 08/31/16 20:45 09/30/16 20:44 Nitroglycerin (Nitrostat Tab) 0.4 mg UD PRN SL 08/31/16 20:45 09/30/16 20:44 Morphine Sulfate (MoRPHine SULFATE INJ) 2 mg Q30M PRN IV 08/31/16 20:45 09/14/16 20:44 Polyethylene 17 gm 17 gm DAILY PRN PO 08/31/16 20:45 09/30/16 20:44 Furosemide/Syringe (Lasix Inj/ Syringe) 4 ml @ 4 mls/min QAM IV 09/01/16 09:00 10/01/16 08:59 4/7/17 09:37 4 MLS/MIN Albuterol Sulfate (Ventolin 0.083% 2.5MG/3ML Neb) 2.5 mg Q4H PRN INH 08/31/16 20:45 09/30/16 20:44 Aspirin (Ecotrin Tab) 81 mg DAILY PO 09/01/16 09:00 10/01/16 08:59 09/01/16 07:26 81 MG Citalopram Hydrobromide (celeXA TAB) 20 mg DAILY PO 09/01/16 09:00 10/01/16 08:59 09/01/16 07:30 20 MG Docusate Sodium (coLACE CAP) 100 mg DAILY PRN PO 08/31/16 20:45 09/30/16 20:44 Salmeterol Xinafoate/ Fluticasone (Advair Diskus 250/50 Inh) 1 puff BID INH 08/31/16 21:00 09/30/16 20:59 09/01/16 07:27 1 PUFF Gabapentin (Neurontin Cap) 300 mg QAM PO 09/01/16 09:00 10/01/16 08:59 09/01/16 07:27 300 MG Gabapentin (Neurontin Cap) 600 mg QPM PO 08/31/16 22:00 09/30/16 21:59 08/31/16 22:49 600 MG Levothyroxine Sodium (Synthroid Tab) 112 mcg DAILYBB PO 09/01/16 06:00 10/01/16 05:59 09/01/16 06:17 112 MCG Loratadine (Claritin Tab) 10 mg DAILY PO 09/01/16 09:00 10/01/16 08:59 09/01/16 07:28 10 MG Losartan Potassium (coZAAR TAB) 100 mg DAILY PO 09/01/16 09:00 10/01/16 08:59 09/01/16 07:29 100 MG Metoprolol Tartrate (Lopressor Tab) 50 mg BID PO 09/01/16 09:00 10/01/16 08:59 09/01/16 07:28 50 MG Nystatin (Mycostatin Susp) 5 ml DAILY PO 09/01/16 09:00 10/01/16 08:59 09/01/16 07:29 5 ML Oxybutynin Chloride (Ditropan-Xl Tab) 10 mg DAILY PO 09/01/16 09:00 10/01/16 08:59 09/01/16 07:30 10 MG Potassium Chloride (Klor-Con M10) 10 meq DAILY PO 09/01/16 09:00 10/01/16 08:59 09/01/16 07:30 10 MEQ Simvastatin (Zocor Tab) 10 mg HS PO 08/31/16 22:00 09/30/16 21:59 08/31/16 22:49 10 MG Insulin Aspart (novoLOG ASPART) SLIDING SCALE G... ACHS SC 08/31/16 21:00 09/30/16 20:59 Insulin Glargine (Lantus Solostar Pen) 10 unit QAM SC 09/01/16 09:00 10/01/16 08:59 Future Hold Pantoprazole Sodium (Protonix Tab) 40 mg QAM PO 09/01/16 09:00 10/01/16 08:59 09/01/16 07:29 40 MG Hydralazine HCl (HydrALAZINE INJ) 10 mg Q4 PRN IV. 08/31/16 20:45 09/30/16 20:44 Nystatin (Mycostatin Powder) 1 appln DAILY PRN EXT 08/31/16 22:45 09/30/16 22:44 08/31/16 23:30 1 APPLN Objective Vital Signs Date Time Temp Pulse Resp B/P Pulse Ox O2 Delivery O2 Flow Rate FiO2 09/01/16 16:00 Nasal Cannula 4.0 09/01/16 15:05 36.8 59 20 154/77 97 Nasal Cannula 4.0 09/01/16 15:00 99 09/01/16 12:00 Nasal Cannula 4.0 09/01/16 11:30 36.9 63 24 111/63 98 Nasal Cannula 4.0 09/01/16 08:00 Nasal Cannula 4.0 09/01/16 07:00 36.4 67 22 119/104 91 Nasal Cannula 4.0 09/01/16 04:00 Nasal Cannula 4.0 09/01/16 02:40 36.7 66 20 166/79 98 Nasal Cannula 4.0 09/01/16 00:00 97 Nasal Cannula 4.0 08/31/16 23:00 37.5 63 20 162/85 98 Nasal Cannula 4.0 08/31/16 21:56 36.8 70 24 178/94 97 Nasal Cannula 4.0 08/31/16 21:31 72 20 150/60 96 08/31/16 20:00 75 20 131/101 98 Nasal Cannula 4.0 08/31/16 18:50 58 18 173/77 94 Room Air 2.0 Physical Exam General Appearance: WD/WN, no apparent distress, + obese Neck: supple, trachea midline Respiratory/Chest: chest non-tender, no respiratory distress, no accessory muscle use, + decreased breath sounds, + crackles Cardiovascular: + systolic murmur, + irregularly irregular Abdomen: normal bowel sounds, non tender, soft Extremities: + pedal edema (1+ b/l pedal edema) Neurologic/Psychiatric: alert, normal mood/affect, oriented x 3 Skin: normal color, warm/dry Laboratory Results Results Past 24 Hours Test 08/31/16 20:30 08/31/16 22:15 08/31/16 23:21 09/01/16 05:16 Range/Units Urine Color YELLOW Urine Appearance CLEAR CLEAR Urine pH 6.0 4.5-7.5 Urine Specific [place] 1.010 1.000-1.030 Urine Protein 2+ NEG Urine Glucose (UA) NEG NEG Urine Ketones NEG NEG Urine Occult Blood NEG NEG Urine Nitrite NEG NEG Urine Bilirubin NEG NEG Urine Urobilinogen NEG NEG Urine Leukocyte Esterase NEG NEG Urine WBC (Auto) 1-5 0-5 /hpf Urine RBC (Auto) 0-4 0-4 /hpf Urine Hyaline Casts (Auto) 0 0-5 /lpf Urine Epithelial Cells (Auto) 10-20 0-5 /lpf Urine Bacteria (Auto) NEG NEG Bedside Glucose 130 70-90 mg/dl Troponin I 0.021 0.022 0-0.045 ng/ml Sodium Level 137 136-145 mmol/L Potassium Level 4.1 3.5-5.1 mmol/L Chloride Level 103 98-107 mmol/L Carbon Dioxide Level 29 21-32 mmol/L Anion Gap 5.0 3-11 mmol/L Blood Urea Nitrogen 10 7-18 mg/dl Creatinine 0.93 0.60-1.20 mg/dl Est Creatinine Clear Calc Drug Dose 52.9 ml/min Estimated GFR () 66.3 Estimated GFR (Non- 57.2 BUN/Creatinine Ratio 10.7 10-20 Random Glucose 120 70-99 mg/dl Estimated Average Glucose 160 mg/dl Hemoglobin A1c 7.2 4.5-5.6 % Calcium Level 9.1 8.5-10.1 mg/dl Test 09/01/16 06:46 09/01/16 10:40 09/01/16 12:17 09/01/16 16:19 Range/Units Bedside Glucose 117 171 138 70-90 mg/dl Troponin I 0.020 0-0.045 ng/ml Assessment and Plan This is an 80 y/o F with a pmh of COPD, DM, HTN, CAD, Surgically repaired brain aneurysm (2003), chronic pain who presents with a several day history of progressively worsening swelling in her lower extremities and shortness of breath. Patient was not in any acute distress. Still requiring oxygen supplement , on 4L NC. Diuresing well. * Acute hypoxic respiratory failure in the setting of CHF - Patient is currently requiring oxygen supplement - Currently on 4L NC, wean off as tolerated with O2 goal >92% - Continue diuresis with IV Lasix 40mg daily, continue to check renal function to prevent azotemia - Recommended head of bed elevation and repositioning * Grade II Diastolic CHF in the setting of hypertensive heart disease - Echo was performed showed 1. Small LV cavity with moderate concentric LVH. 2. Normal LV systolic function. LVEF 55-60%. No regional wall motion abnormalities. 3. Normal RV size and function. 4. Grade II diastolic dysfunction. 5. 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 because she doesn't usually rinse her mouth after using Advair INH - Recommended to rinse mouth thoroughly after using Advair - C/w Nystatin * COPD - Don't have any PFT on record - Continue Advair INH BID and albuterol 2.5mg q4h prn * HTN - C/w Cozaar 100mg and Metoprolol 50mg BID * DM - C/w Lantus 10unit + sliding scale - Hold Glipizide, metformin and Sitagliptin - Hgb A1c 7.2 * Hypothyroid - TSH is elevated at 6 - Will continue with the home dose of levothyroxine, - recommended to adjust the dose, can be done as outpatient follow up with PCP * CAD - Continue aspirin, simvastatin, metoprolol *Neuropathic pain - C/w Gabapentin 300mg * Ambulatory dysfunction - PT/OT * DVT prophylaxis - Lovenox * Code Status: - Full Code Reviewed: Pt Seen/Exam by Me History breathing slightly better overnight Constitutional: denies: fever Respiratory: positive: short of breath Cardiovascular: denies chest pain General Appearance: no apparent distress, obese Respiratory: no respiratory distress, decreased breath sounds Cardiovascular: regular rate, rhythm Neurologic/Psychiatric: alert, oriented x 3 Skin Characteristics: warm/dry Assessment/Plan I have reviewed the medical record and performed a history and physical examination of this patient today. I have discussed the case with Dr. Roca. The above note reflects my findings, conclusions, and recommendations.
[2016-09-01] MEDS: SIMVASTATIN 10 MG TAB PO SCH (20:35)
[2016-09-02] VITALS (10 sets, daily range): BP systolic 122–179; BP diastolic 60–103; PULSE 53–72; TEMP 36.5–36.8; O2SAT 96–98
[2016-09-02] MEDS: LEVOTHYROXINE 112 MCG TAB PO SCH (05:36)
[2016-09-02 06:27] LABS: HEMATOCRIT 34.1 % (37-47); MEAN CELL VOLUME 90.2 fL (80-100); MEAN CORPUSCULAR HEMOGLOBIN 29.6 pg (25-34); MEAN CORPUSCULAR HGB CONC 32.8 g/dl (32-36); MEAN PLATELET VOLUME 9.4 fL (7.4-10.4); PLATELET COUNT 239 K/uL (130-400); RED BLOOD COUNT 3.78 M/uL (4.2-5.4); WHITE BLOOD COUNT 8.82 K/uL (4.8-10.8)
[2016-09-02] MEDS: INSULIN ASPART 100 UNITS/ML 3 ML PEN SC SCH ×4 (07:00→20:35)
[2016-09-02 07:01] LABS: CALCIUM 9.4 mg/dl (8.5-10.1); POTASSIUM 4.4 mmol/L (3.5-5.1)
[2016-09-02] MEDS: FLUTICASONE/SALMETEROL 250/50 (ADVAIR) 14 PUFF/1 INHALER INH SCH ×2 (08:06→21:04)
[2016-09-02] MEDS: LORATADINE 10 MG TAB PO SCH (08:06)
[2016-09-02] MEDS: CITALOPRAM 20 MG TAB PO SCH (08:06)
[2016-09-02] MEDS: LOSARTAN POTASSIUM 50 MG TAB PO SCH (08:06)
[2016-09-02] MEDS: FUROSEMIDE INJ 40 MG in SYRINGE 0 ML IV SCH (08:06)
[2016-09-02] MEDS: PANTOprazole SOD 40 MG TAB PO SCH (08:07)
[2016-09-02] MEDS: NYSTATIN SUSP 500,000 U/5 ML UDC PO SCH (08:07)
[2016-09-02] MEDS: POTASSIUM CHLORIDE 10 MEQ TABCR PO SCH (08:07)
[2016-09-02] MEDS: GABAPENTIN 300 MG CAP PO SCH ×2 (08:07→21:04)
[2016-09-02] MEDS: ASPIRIN 81 MG ECTAB PO SCH (08:07)
[2016-09-02] MEDS: METOPROLOL TARTRATE 25 MG TAB PO SCH ×2 (08:07→21:00)
[2016-09-02] MEDS: OXYBUTYNIN CHLORIDE 5 MG TABCR PO SCH (08:07)
[2016-09-02] MEDS: ENOXAPARIN 40 MG/0.4 ML SYR SC SCH (08:14)
[2016-09-02] MEDS: INSULIN GLARGINE SOLOSTAR 100 UNITS/ML 3 ML PEN SC SCH (08:18)
--- NOTE | 2016-09-02 11:05 | Family Medicine Progress Note ---
Progress Note Date of Service Sep 02, 2016. Subjective Pt evaluation today including: conversation w/ patient, physical exam, lab review, review of studies Patient was seen at the bedside. She was comfortably lying down on her bed. She states that her SOB has improved since yesterday. Her legs still feels heavy to her but improved. Denies any pain with swallowing. Constitutional: No fever ENT: No sore throat, No trouble swallowing Respiratory: + dyspnea on exertion, + shortness of breath, No cough, No dyspnea at rest Cardiovascular: + edema, No chest pain Abdomen: No GI bleeding, No constipation, No diarrhea, No nausea, No pain, No vomiting Musculoskeletal: No muscle pain Medications Current Inpatient Medications Medications (Trade) Dose Ordered Sig/Deborah Route Start Time Stop Time Status Last Admin Dose Admin Enoxaparin Sodium (Lovenox Inj) 40 mg Q24H SC 09/01/16 09:00 10/01/16 08:59 09/02/16 08:14 40 MG Acetaminophen (Tylenol Tab) 650 mg Q4H PRN PO 08/31/16 20:45 09/30/16 20:44 Al Hydrox/Mg Hydrox/Simethicone (Maalox Max Susp) 15 ml Q4H PRN PO 08/31/16 20:45 09/30/16 20:44 Magnesium Hydroxide (Milk Of Magnesia Susp) 30 ml Q12H PRN PO 08/31/16 20:45 09/30/16 20:44 Ondansetron HCl (Zofran Inj) 4 mg Q6H PRN IV 08/31/16 20:45 09/30/16 20:44 Nitroglycerin (Nitrostat Tab) 0.4 mg UD PRN SL 08/31/16 20:45 09/30/16 20:44 Morphine Sulfate (MoRPHine SULFATE INJ) 2 mg Q30M PRN IV 08/31/16 20:45 09/14/16 20:44 Polyethylene 17 gm 17 gm DAILY PRN PO 08/31/16 20:45 09/30/16 20:44 Furosemide/Syringe (Lasix Inj/ Syringe) 4 ml @ 4 mls/min QAM IV 09/01/16 09:00 10/01/16 08:59 09/02/16 08:06 4 MLS/MIN Albuterol Sulfate (Ventolin 0.083% 2.5MG/3ML Neb) 2.5 mg Q4H PRN INH 08/31/16 20:45 09/30/16 20:44 Aspirin (Ecotrin Tab) 81 mg DAILY PO 09/01/16 09:00 10/01/16 08:59 09/02/16 08:07 81 MG Citalopram Hydrobromide (celeXA TAB) 20 mg DAILY PO 09/01/16 09:00 10/01/16 08:59 09/02/16 08:06 20 MG Docusate Sodium (coLACE CAP) 100 mg DAILY PRN PO 08/31/16 20:45 09/30/16 20:44 Salmeterol Xinafoate/ Fluticasone (Advair Diskus 250/50 Inh) 1 puff BID INH 08/31/16 21:00 09/30/16 20:59 09/02/16 08:06 1 PUFF Gabapentin (Neurontin Cap) 300 mg QAM PO 09/01/16 09:00 10/01/16 08:59 09/02/16 08:07 300 MG Gabapentin (Neurontin Cap) 600 mg QPM PO 08/31/16 22:00 09/30/16 21:59 09/01/16 20:35 600 MG Levothyroxine Sodium (Synthroid Tab) 112 mcg DAILYBB PO 09/01/16 06:00 10/01/16 05:59 09/02/16 05:36 112 MCG Loratadine (Claritin Tab) 10 mg DAILY PO 09/01/16 09:00 10/01/16 08:59 09/02/16 08:06 10 MG Losartan Potassium (coZAAR TAB) 100 mg DAILY PO 09/01/16 09:00 10/01/16 08:59 09/02/16 08:06 100 MG Metoprolol Tartrate (Lopressor Tab) 50 mg BID PO 09/01/16 09:00 10/01/16 08:59 09/02/16 08:07 50 MG Nystatin (Mycostatin Susp) 5 ml DAILY PO 09/01/16 09:00 10/01/16 08:59 09/02/16 08:07 5 ML Oxybutynin Chloride (Ditropan-Xl Tab) 10 mg DAILY PO 09/01/16 09:00 5/7/17 08:59 09/02/16 08:07 10 MG Potassium Chloride (Klor-Con M10) 10 meq DAILY PO 09/01/16 09:00 10/01/16 08:59 09/02/16 08:07 10 MEQ Simvastatin (Zocor Tab) 10 mg HS PO 08/31/16 22:00 09/30/16 21:59 09/01/16 20:35 10 MG Insulin Aspart (novoLOG ASPART) SLIDING SCALE G... ACHS SC 08/31/16 21:00 09/30/16 20:59 Insulin Glargine (Lantus Solostar Pen) 10 unit QAM SC 09/01/16 09:00 10/01/16 08:59 Future hold 09/02/16 08:18 10 UNIT Pantoprazole Sodium (Protonix Tab) 40 mg QAM PO 09/01/16 09:00 10/01/16 08:59 09/02/16 08:07 40 MG Hydralazine HCl (HydrALAZINE INJ) 10 mg Q4 PRN IV. 08/31/16 20:45 09/30/16 20:44 Nystatin (Mycostatin Powder) 1 appln DAILY PRN EXT 08/31/16 22:45 09/30/16 22:44 08/31/16 23:30 1 APPLN Objective Vital Signs Date Time Temp Pulse Resp B/P Pulse Ox O2 Delivery O2 Flow Rate FiO2 09/02/16 08:01 98 Nasal Cannula 3.0 09/02/16 06:59 36.8 62 22 137/103 98 Nasal Cannula 5.0 09/02/16 04:29 Nasal Cannula 09/02/16 04:00 36.5 68 20 146/74 96 Nasal Cannula 3.0 09/02/16 00:10 Nasal Cannula 4.0 09/02/16 00:00 36.5 66 20 142/89 96 Nasal Cannula 3.0 09/01/16 20:30 Nasal Cannula 4.0 09/01/16 19:21 37.1 69 20 159/59 96 Nasal Cannula 5.0 09/01/16 16:00 Nasal Cannula 4.0 09/01/16 15:05 36.8 59 20 154/77 97 Nasal Cannula 4.0 09/01/16 15:00 99 09/01/16 12:00 Nasal Cannula 4.0 09/01/16 11:30 36.9 63 24 111/63 98 Nasal Cannula 4.0 Physical Exam General Appearance: WD/WN, no apparent distress Neck: supple, trachea midline Respiratory/Chest: chest non-tender, no respiratory distress, no accessory muscle use, + decreased breath sounds Cardiovascular: + systolic murmur, + irregularly irregular Abdomen: normal bowel sounds, non tender, soft Extremities: + pedal edema (trace of edema below knee), + pertinent finding ( tender to touch b/l lower extremitites) Neurologic/Psychiatric: alert, normal mood/affect, oriented x 3 Skin: normal color, warm/dry Laboratory Results Results Past 24 Hours Test 09/01/16 12:17 09/01/16 16:19 09/01/16 20:07 09/02/16 05:50 Range/Units Troponin I 0.020 0-0.045 ng/ml Bedside Glucose 138 171 70-90 mg/dl White Blood Count 8.82 4.8-10.8 K/uL Red Blood Count 3.78 4.2-5.4 M/uL Hemoglobin 11.2 12.0-16.0 g/dL Hematocrit 34.1 37-47 % Mean Corpuscular Volume 90.2 80-100 fL Mean Corpuscular Hemoglobin 29.6 25-34 pg Mean Corpuscular Hemoglobin Concent 32.8 32-36 g/dl RDW Standard Deviation 53.7 36.4-46.3 fL RDW Coefficient of Variation 16.3 11.5-14.5 % Platelet Count 239 130-400 K/uL Mean Platelet Volume 9.4 7.4-10.4 fL Sodium Level 138 136-145 mmol/L Potassium Level 4.4 3.5-5.1 mmol/L Chloride Level 100 98-107 mmol/L Carbon Dioxide Level 32 21-32 mmol/L Anion Gap 6.0 3-11 mmol/L Blood Urea Nitrogen 11 7-18 mg/dl Creatinine 1.00 0.60-1.20 mg/dl Est Creatinine Clear Calc Drug Dose 48.7 ml/min Estimated GFR () 60.8 Estimated GFR (Non- 52.4 BUN/Creatinine Ratio 11.0 10-20 Random Glucose 124 70-99 mg/dl Calcium Level 9.4 8.5-10.1 mg/dl Test 09/02/16 06:52 Range/Units Bedside Glucose 139 70-90 mg/dl Assessment and Plan This is an 80 y/o F with a pmh of COPD, DM, HTN, CAD, Surgically repaired brain aneurysm (2003), chronic pain who presents with a several day history of progressively worsening swelling in her lower extremities and shortness of breath. Patient is clinically improving. Currently on 3L NC. Diuresing well with IV Lasix. * Acute hypoxic respiratory failure hypoxia in the setting of CHF - Patient is currently requiring oxygen supplement - Currently on 3L NC, wean off as tolerated with O2 goal >92% - Continue with IV Lasix 40mg daily, continue to check renal function to prevent azotemia - Recommended head of bed elevation and repositioning * Grade II Diastolic CHF in the setting of hypertensive heart disease - Echo was performed showed 1. Small LV cavity with moderate concentric LVH. 2. Normal LV systolic function. LVEF 55-60%. No regional wall motion abnormalities. 3. Normal RV size and function. 4. Grade II diastolic dysfunction. 5. 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 because she doesn't usually rinse her mouth after using Advair INH - C/w Nystatin * COPD - Don't have any PFT on record - Continue Advair INH BID and albuterol 2.5mg q4h prn * HTN - C/w Cozaar 100mg and Metoprolol 50mg BID * DM - C/w Lantus 10unit + sliding scale - Hold Glipizide, metformin and Sitagliptin - Hgb A1c 7.2 * Hypothyroid - TSH is elevated at 6 - Will continue with the home dose of levothyroxine, - recommended to adjust the dose, can be done as outpatient follow up with PCP * CAD - Continue aspirin, simvastatin, metoprolol *Neuropathic pain - C/w Gabapentin 300mg * Ambulatory dysfunction - PT/OT * DVT prophylaxis - Lovenox * Code Status: - Full Code Reviewed: Pt Seen/Exam by Me History continuing to feel better. still with some leg swelling Constitutional: denies: fever Respiratory: negative: short of breath Cardiovascular: denies chest pain Gastrointestinal/Abdominal: negative: abdominal pain General Appearance: no apparent distress Respiratory: lungs clear, no respiratory distress Cardiovascular: regular rate, rhythm Neurologic/Psychiatric: alert, oriented x 3 Assessment/Plan I have reviewed the medical record and performed a history and physical examination of this patient today. I have discussed the case with Dr. Roca. The above note reflects my findings, conclusions, and recommendations. BP better. diuresing. follow
[2016-09-02] MEDS: SIMVASTATIN 10 MG TAB PO SCH (21:04)
[2016-09-03] VITALS (9 sets, daily range): BP systolic 116–174; BP diastolic 60–102; PULSE 58–73; TEMP 36.6–37.6; O2SAT 94–98
[2016-09-03 05:25] LABS: HEMATOCRIT 31.4 % (37-47); MEAN CELL VOLUME 90.2 fL (80-100); MEAN CORPUSCULAR HEMOGLOBIN 29.9 pg (25-34); MEAN CORPUSCULAR HGB CONC 33.1 g/dl (32-36); MEAN PLATELET VOLUME 9.1 fL (7.4-10.4); PLATELET COUNT 211 K/uL (130-400); RED BLOOD COUNT 3.48 M/uL (4.2-5.4); WHITE BLOOD COUNT 7.22 K/uL (4.8-10.8)
[2016-09-03 05:41] LABS: BUN/CREATININE RATIO 12.5 (10-20); CALCIUM 8.6 mg/dl (8.5-10.1); CREATININE 0.98 mg/dl (0.60-1.20); POTASSIUM 3.9 mmol/L (3.5-5.1)
[2016-09-03] MEDS: LEVOTHYROXINE 112 MCG TAB PO SCH (06:00)
[2016-09-03] MEDS: INSULIN ASPART 100 UNITS/ML 3 ML PEN SC SCH ×4 (07:00→21:09)
[2016-09-03] MEDS: LORATADINE 10 MG TAB PO SCH (07:43)
[2016-09-03] MEDS: CITALOPRAM 20 MG TAB PO SCH (07:43)
[2016-09-03] MEDS: FLUTICASONE/SALMETEROL 250/50 (ADVAIR) 14 PUFF/1 INHALER INH SCH ×2 (07:43→21:08)
[2016-09-03] MEDS: PANTOprazole SOD 40 MG TAB PO SCH (07:44)
[2016-09-03] MEDS: NYSTATIN SUSP 500,000 U/5 ML UDC PO SCH (07:44)
[2016-09-03] MEDS: ASPIRIN 81 MG ECTAB PO SCH (07:44)
[2016-09-03] MEDS: GABAPENTIN 300 MG CAP PO SCH ×2 (07:44→21:08)
[2016-09-03] MEDS: METOPROLOL TARTRATE 25 MG TAB PO SCH ×2 (07:44→21:08)
[2016-09-03] MEDS: LOSARTAN POTASSIUM 50 MG TAB PO SCH (07:44)
[2016-09-03] MEDS: OXYBUTYNIN CHLORIDE 5 MG TABCR PO SCH (07:44)
[2016-09-03] MEDS: POTASSIUM CHLORIDE 10 MEQ TABCR PO SCH (07:44)
[2016-09-03] MEDS: FUROSEMIDE INJ 40 MG in SYRINGE 0 ML IV SCH (09:00)
[2016-09-03] MEDS ORDERED: FUROSEMIDE INJ 40 MG in SYRINGE 0 ML IV ONE (09:15)
[2016-09-03] MEDS: ENOXAPARIN 40 MG/0.4 ML SYR SC SCH (09:58)
[2016-09-03] MEDS: INSULIN GLARGINE SOLOSTAR 100 UNITS/ML 3 ML PEN SC SCH (10:02)
--- NOTE | 2016-09-03 14:55 | Family Medicine Progress Note ---
Progress Note Date of Service Sep 03, 2016. Subjective Pt evaluation today including: conversation w/ patient, physical exam, lab review, review of studies Patient was seen at the bedside. She was comfortably resting on her bed. Denied any complaints today. She states that she is feeling better than yesterday. Tolerating food well. Constitutional: No fever Respiratory: + shortness of breath, No cough Cardiovascular: + edema, No chest pain Abdomen: No constipation, No diarrhea, No nausea, No pain, No vomiting Musculoskeletal: No muscle pain Female : No dysuria Medications Current Inpatient Medications Medications (Trade) Dose Ordered Sig/Deborah Route Start Time Stop Time Status Last Admin Dose Admin Enoxaparin Sodium (Lovenox Inj) 40 mg Q24H SC 09/01/16 09:00 10/01/16 08:59 09/03/16 09:58 40 MG Acetaminophen (Tylenol Tab) 650 mg Q4H PRN PO 08/31/16 20:45 09/30/16 20:44 Al Hydrox/Mg Hydrox/Simethicone (Maalox Max Susp) 15 ml Q4H PRN PO 08/31/16 20:45 09/30/16 20:44 Magnesium Hydroxide (Milk Of Magnesia Susp) 30 ml Q12H PRN PO 08/31/16 20:45 09/30/16 20:44 Ondansetron HCl (Zofran Inj) 4 mg Q6H PRN IV 08/31/16 20:45 09/30/16 20:44 Nitroglycerin (Nitrostat Tab) 0.4 mg UD PRN SL 08/31/16 20:45 09/30/16 20:44 Morphine Sulfate (MoRPHine SULFATE INJ) 2 mg Q30M PRN IV 08/31/16 20:45 09/14/16 20:44 Polyethylene 17 gm 17 gm DAILY PRN PO 08/31/16 20:45 09/30/16 20:44 Furosemide/Syringe (Lasix Inj/ Syringe) 4 ml @ 4 mls/min QAM IV 09/01/16 09:00 10/01/16 08:59 09/02/16 08:06 4 MLS/MIN Albuterol Sulfate (Ventolin 0.083% 2.5MG/3ML Neb) 2.5 mg Q4H PRN INH 08/31/16 20:45 09/30/16 20:44 Aspirin (Ecotrin Tab) 81 mg DAILY PO 09/01/16 09:00 10/01/16 08:59 09/03/16 07:44 81 MG Citalopram Hydrobromide (celeXA TAB) 20 mg DAILY PO 09/01/16 09:00 10/01/16 08:59 09/03/16 07:43 20 MG Docusate Sodium (coLACE CAP) 100 mg DAILY PRN PO 08/31/16 20:45 09/30/16 20:44 Salmeterol Xinafoate/ Fluticasone (Advair Diskus 250/50 Inh) 1 puff BID INH 08/31/16 21:00 09/30/16 20:59 09/03/16 07:43 1 PUFF Gabapentin (Neurontin Cap) 300 mg QAM PO 09/01/16 09:00 10/01/16 08:59 09/03/16 07:44 300 MG Gabapentin (Neurontin Cap) 600 mg QPM PO 08/31/16 22:00 09/30/16 21:59 09/02/16 21:04 600 MG Levothyroxine Sodium (Synthroid Tab) 112 mcg DAILYBB PO 09/01/16 06:00 10/01/16 05:59 09/03/16 06:00 112 MCG Loratadine (Claritin Tab) 10 mg DAILY PO 09/01/16 09:00 10/01/16 08:59 09/03/16 07:43 10 MG Losartan Potassium (coZAAR TAB) 100 mg DAILY PO 09/01/16 09:00 10/01/16 08:59 09/03/16 07:44 100 MG Metoprolol Tartrate (Lopressor Tab) 50 mg BID PO 09/01/16 09:00 10/01/16 08:59 09/03/16 07:44 50 MG Nystatin (Mycostatin Susp) 5 ml DAILY PO 09/01/16 09:00 10/01/16 08:59 09/03/16 07:44 5 ML Oxybutynin Chloride (Ditropan-Xl Tab) 10 mg DAILY PO 09/01/16 09:00 10/01/16 08:59 09/03/16 07:44 10 MG Potassium Chloride (Klor-Con M10) 10 meq DAILY PO 09/01/16 09:00 10/01/16 08:59 09/03/16 07:44 10 MEQ Simvastatin (Zocor Tab) 10 mg HS PO 08/31/16 22:00 09/30/16 21:59 09/02/16 21:04 10 MG Insulin Aspart (novoLOG ASPART) SLIDING SCALE G... ACHS SC 08/31/16 21:00 09/30/16 20:59 Insulin Glargine (Lantus Solostar Pen) 10 unit QAM SC 09/01/16 09:00 10/01/16 08:59 Future hold 09/03/16 10:02 10 UNIT Pantoprazole Sodium (Protonix Tab) 40 mg QAM PO 09/01/16 09:00 10/01/16 08:59 09/03/16 07:44 40 MG Hydralazine HCl (HydrALAZINE INJ) 10 mg Q4 PRN IV. 08/31/16 20:45 09/30/16 20:44 Nystatin (Mycostatin Powder) 1 appln DAILY PRN EXT 08/31/16 22:45 09/30/16 22:44 08/31/16 23:30 1 APPLN Objective Vital Signs Date Time Temp Pulse Resp B/P Pulse Ox O2 Delivery O2 Flow Rate FiO2 09/03/16 12:36 36.8 58 18 120/60 98 Nasal Cannula 4.0 09/03/16 12:29 98 Nasal Cannula 3.0 09/03/16 08:01 98 Nasal Cannula 3.0 09/03/16 06:53 36.6 72 22 168/102 95 Nasal Cannula 3.0 09/03/16 04:00 Nasal Cannula 09/03/16 04:00 36.9 73 20 140/65 98 Nasal Cannula 3.0 Humidified Oxygen 09/03/16 00:04 Nasal Cannula 09/02/16 22:55 36.8 72 22 147/79 98 Nasal Cannula 4.0 Humidified Oxygen 09/02/16 20:05 Nasal Cannula 09/02/16 18:48 36.7 60 20 122/70 96 Nasal Cannula 3.0 09/02/16 16:01 98 Nasal Cannula 3.0 09/02/16 14:50 36.5 58 22 179/87 97 Nasal Cannula 3.0 Physical Exam General Appearance: WD/WN, no apparent distress, + obese Neck: supple, trachea midline Respiratory/Chest: chest non-tender, no respiratory distress, no accessory muscle use, + decreased breath sounds, + crackles Cardiovascular: + systolic murmur, + irregularly irregular Abdomen: normal bowel sounds, non tender, soft Extremities: non-tender, no calf tenderness, + pedal edema (trace of edema b/l below knee) Neurologic/Psychiatric: alert, normal mood/affect, oriented x 3 Skin: normal color, warm/dry Laboratory Results Results Past 24 Hours Test 09/02/16 16:23 09/02/16 20:30 09/03/16 05:15 09/03/16 06:52 Range/Units Bedside Glucose 126 138 122 70-90 mg/dl White Blood Count 7.22 4.8-10.8 K/uL Red Blood Count 3.48 4.2-5.4 M/uL Hemoglobin 10.4 12.0-16.0 g/dL Hematocrit 31.4 37-47 % Mean Corpuscular Volume 90.2 80-100 fL Mean Corpuscular Hemoglobin 29.9 25-34 pg Mean Corpuscular Hemoglobin Concent 33.1 32-36 g/dl RDW Standard Deviation 53.4 36.4-46.3 fL RDW Coefficient of Variation 16.3 11.5-14.5 % Platelet Count 211 130-400 K/uL Mean Platelet Volume 9.1 7.4-10.4 fL Sodium Level 137 136-145 mmol/L Potassium Level 3.9 3.5-5.1 mmol/L Chloride Level 98 98-107 mmol/L Carbon Dioxide Level 34 21-32 mmol/L Anion Gap 5.0 3-11 mmol/L Blood Urea Nitrogen 12 7-18 mg/dl Creatinine 0.98 0.60-1.20 mg/dl Est Creatinine Clear Calc Drug Dose 49.7 ml/min Estimated GFR () 62.3 Estimated GFR (Non- 53.7 BUN/Creatinine Ratio 12.5 10-20 Random Glucose 132 70-99 mg/dl Calcium Level 8.6 8.5-10.1 mg/dl Test 09/03/16 11:15 Range/Units Bedside Glucose 187 70-90 mg/dl Assessment and Plan This is an 80 y/o F with a pmh of COPD, DM, HTN, CAD, Surgically repaired brain aneurysm (2003), chronic pain who presents with a several day history of progressively worsening swelling in her lower extremities and shortness of breath. Patient is clinically improving. Currently on 3L NC. Diuresing well with IV Lasix. Given extra dose of Lasix (40mg) today. On tele overnight she was in Afib with heart rate in 50s. * Acute hypoxic respiratory failure hypoxia in the setting of CHF - Patient is currently requiring oxygen supplement - Currently on 3L NC, wean off as tolerated with O2 goal >92% - Continue with IV Lasix 40mg daily, continue to check renal function to prevent azotemia - Recommended head of bed elevation and repositioning * Grade II Diastolic CHF in the setting of hypertensive heart disease - Echo was performed showed 1. Small LV cavity with moderate concentric LVH. 2. Normal LV systolic function. LVEF 55-60%. No regional wall motion abnormalities. 3. Normal RV size and function. 4. Grade II diastolic dysfunction. 5. Mild (low flow, low gradient) and MR - CXR suggestive of CHF - Troponin is negative - Continue with IV Lasix 40mg daily - Continue with Losartan 100mg and Metoprolol 50mg BID for HTN - Daily I/O and weight * CKD 3 in the setting of hypertensive heart disease - Patient eGFR is in 50s - Continue with the Cozaar 100mg and Metoprolol 50mg BID - Continue to monitor - BMP tomorrow am * Oral Thrush - Per daughter patient has chronic oral thrush because she doesn't usually rinse her mouth after using Advair INH - C/w Nystatin * COPD - Don't have any PFT on record - Continue Advair INH BID and albuterol 2.5mg q4h prn * HTN - C/w Cozaar 100mg and Metoprolol 50mg BID * DM - C/w Lantus 10unit + sliding scale - Hold Glipizide, metformin and Sitagliptin - Hgb A1c 7.2 * Hypothyroid - TSH is elevated at 6 - Will continue with the home dose of levothyroxine, - recommended to adjust the dose, can be done as outpatient follow up with PCP * CAD - Continue aspirin, simvastatin, metoprolol * Atrial fibrillation - Patient was in Afib during admission. - Unclear whether it's new or chronic (no documentation on previous admission in 2014) - At home patient was not in any anticoagulant. - Continue with metoprolol and ASA 81mg *Neuropathic pain - C/w Gabapentin 300mg * Ambulatory dysfunction - PT/OT * DVT prophylaxis - Lovenox * Code Status: - Full Code Dispo: If patient continues to improve consider 2-step exercise tomorrow before discharge Resident Tracking Resident Involvement: Resident Care Provided Care Provided: Adult [facility] Medicine Reviewed: Pt Seen/Exam by Me History denies any complains Constitutional: denies: fever Respiratory: negative: short of breath Cardiovascular: denies chest pain General Appearance: no apparent distress Respiratory: no respiratory distress, decreased breath sounds Cardiovascular: regular rate, rhythm Neurologic/Psychiatric: alert, oriented x 3 Skin Characteristics: warm/dry Assessment/Plan I have reviewed the medical record and performed a history and physical examination of this patient today. I have discussed the case with Dr. Roca. The above note reflects my findings, conclusions, and recommendations. Not significant output in last 24hrs. will give extra 40mgs lasix and follow. hasn't been using cpap here (uses at home). likely contributing to bp elevation. if diureses well - anticipate d/c home in am
[2016-09-03] MEDS: SIMVASTATIN 10 MG TAB PO SCH (21:08)
[2016-09-04] VITALS (9 sets, daily range): BP systolic 109–160; BP diastolic 59–88; PULSE 57–80; TEMP 36.7–37.6; O2SAT 92–98
[2016-09-04] MEDS: LEVOTHYROXINE 112 MCG TAB PO SCH (05:46)
[2016-09-04 06:28] LABS: HEMATOCRIT 33.9 % (37-47); MEAN CELL VOLUME 90.6 fL (80-100); MEAN CORPUSCULAR HEMOGLOBIN 29.1 pg (25-34); MEAN CORPUSCULAR HGB CONC 32.2 g/dl (32-36); MEAN PLATELET VOLUME 9.6 fL (7.4-10.4); PLATELET COUNT 260 K/uL (130-400); RED BLOOD COUNT 3.74 M/uL (4.2-5.4); WHITE BLOOD COUNT 7.84 K/uL (4.8-10.8)
[2016-09-04] MEDS: INSULIN ASPART 100 UNITS/ML 3 ML PEN SC SCH ×4 (07:00→21:32)
[2016-09-04 07:02] LABS: BUN/CREATININE RATIO 12.5 (10-20); CALCIUM 8.7 mg/dl (8.5-10.1); CREATININE 1.1 mg/dl (0.60-1.20); POTASSIUM 4.3 mmol/L (3.5-5.1)
[2016-09-04] MEDS: CITALOPRAM 20 MG TAB PO SCH (07:54)
[2016-09-04] MEDS: LORATADINE 10 MG TAB PO SCH (07:54)
[2016-09-04] MEDS: LOSARTAN POTASSIUM 50 MG TAB PO SCH (07:54)
[2016-09-04] MEDS: ASPIRIN 81 MG ECTAB PO SCH (07:54)
[2016-09-04] MEDS: FLUTICASONE/SALMETEROL 250/50 (ADVAIR) 14 PUFF/1 INHALER INH SCH ×2 (07:54→21:39)
[2016-09-04] MEDS: FUROSEMIDE INJ 40 MG in SYRINGE 0 ML IV SCH (07:54)
[2016-09-04] MEDS: OXYBUTYNIN CHLORIDE 5 MG TABCR PO SCH (07:54)
[2016-09-04] MEDS: NYSTATIN SUSP 500,000 U/5 ML UDC PO SCH (07:55)
[2016-09-04] MEDS: PANTOprazole SOD 40 MG TAB PO SCH (07:55)
[2016-09-04] MEDS: ENOXAPARIN 40 MG/0.4 ML SYR SC SCH (07:55)
[2016-09-04] MEDS: METOPROLOL TARTRATE 25 MG TAB PO SCH ×2 (07:55→21:40)
[2016-09-04] MEDS: POTASSIUM CHLORIDE 10 MEQ TABCR PO SCH (07:55)
[2016-09-04] MEDS: GABAPENTIN 300 MG CAP PO SCH ×2 (07:55→21:40)
[2016-09-04] MEDS: INSULIN GLARGINE SOLOSTAR 100 UNITS/ML 3 ML PEN SC SCH (08:14)
--- NOTE | 2016-09-04 14:25 | Family Medicine Progress Note ---
Progress Note Date of Service Sep 04, 2016. Subjective Pt evaluation today including: conversation w/ patient, physical exam, chart review, lab review, review of studies Pain: Denies any acute pain Voiding: no voiding problems Patient is resting comfortably in bed today with no acute events overnight. Patient still appreciated being short of breath today and is requiring 2L of oxygen. Denies any chest pain or palpitations. Constitutional: No chills, No fever Respiratory: + shortness of breath, No cough, No dyspnea at rest, No sputum , No wheezing Cardiovascular: No chest pain Abdomen: No constipation, No nausea, No pain, No vomiting Female : No dysuria Medications Current Inpatient Medications Medications (Trade) Dose Ordered Sig/Deborah Route Start Time Stop Time Status Last Admin Dose Admin Enoxaparin Sodium (Lovenox Inj) 40 mg Q24H SC 09/01/16 09:00 10/01/16 08:59 09/04/16 07:55 40 MG Acetaminophen (Tylenol Tab) 650 mg Q4H PRN PO 08/31/16 20:45 09/30/16 20:44 Al Hydrox/Mg Hydrox/Simethicone (Maalox Max Susp) 15 ml Q4H PRN PO 08/31/16 20:45 09/30/16 20:44 Magnesium Hydroxide (Milk Of Magnesia Susp) 30 ml Q12H PRN PO 08/31/16 20:45 09/30/16 20:44 Ondansetron HCl (Zofran Inj) 4 mg Q6H PRN IV 08/31/16 20:45 09/30/16 20:44 Nitroglycerin (Nitrostat Tab) 0.4 mg UD PRN SL 08/31/16 20:45 09/30/16 20:44 Morphine Sulfate (MoRPHine SULFATE INJ) 2 mg Q30M PRN IV 08/31/16 20:45 09/14/16 20:44 Polyethylene (Miralax Powder Packet) 17 gm DAILY PRN PO 08/31/16 20:45 09/30/16 20:44 Albuterol Sulfate (Ventolin 0.083% 2.5MG/3ML Neb) 2.5 mg Q4H PRN INH 08/31/16 20:45 09/30/16 20:44 Aspirin (Ecotrin Tab) 81 mg DAILY PO 09/01/16 09:00 10/01/16 08:59 09/04/16 07:54 81 MG Citalopram Hydrobromide (celeXA TAB) 20 mg DAILY PO 09/01/16 09:00 10/01/16 08:59 09/04/16 07:54 20 MG Docusate Sodium (coLACE CAP) 100 mg DAILY PRN PO 08/31/16 20:45 09/30/16 20:44 Salmeterol Xinafoate/ Fluticasone (Advair Diskus 250/50 Inh) 1 puff BID INH 08/31/16 21:00 09/30/16 20:59 09/04/16 07:54 1 PUFF Gabapentin (Neurontin Cap) 300 mg QAM PO 09/01/16 09:00 10/01/16 08:59 09/04/16 07:55 300 MG Gabapentin (Neurontin Cap) 600 mg QPM PO 08/31/16 22:00 09/30/16 21:59 09/03/16 21:08 600 MG Levothyroxine Sodium (Synthroid Tab) 112 mcg DAILYBB PO 09/01/16 06:00 10/01/16 05:59 09/04/16 05:46 112 MCG Loratadine (Claritin Tab) 10 mg DAILY PO 09/01/16 09:00 10/01/16 08:59 09/04/16 07:54 10 MG Losartan Potassium (coZAAR TAB) 100 mg DAILY PO 09/01/16 09:00 10/01/16 08:59 09/04/16 07:54 100 MG Metoprolol Tartrate (Lopressor Tab) 50 mg BID PO 09/01/16 09:00 10/01/16 08:59 09/04/16 07:55 50 MG Nystatin (Mycostatin Susp) 5 ml DAILY PO 09/01/16 09:00 10/01/16 08:59 09/04/16 07:55 5 ML Oxybutynin Chloride (Ditropan-Xl Tab) 10 mg DAILY PO 09/01/16 09:00 10/01/16 08:59 09/04/16 07:54 10 MG Potassium Chloride (Klor-Con M10) 10 meq DAILY PO 09/01/16 09:00 10/01/16 08:59 09/04/16 07:55 10 MEQ Simvastatin (Zocor Tab) 10 mg HS PO 08/31/16 22:00 09/30/16 21:59 09/03/16 21:08 10 MG Insulin Aspart (novoLOG ASPART) SLIDING SCALE G... ACHS SC 08/31/16 21:00 09/30/16 20:59 09/03/16 21:09 3 UNITS Insulin Glargine (Lantus Solostar Pen) 10 unit QAM SC 09/01/16 09:00 10/01/16 08:59 Future hold 09/04/16 08:14 10 UNIT Pantoprazole Sodium (Protonix Tab) 40 mg QAM PO 09/01/16 09:00 10/01/16 08:59 09/04/16 07:55 40 MG Hydralazine HCl (HydrALAZINE INJ) 10 mg Q4 PRN IV. 08/31/16 20:45 09/30/16 20:44 Nystatin (Mycostatin Powder) 1 appln DAILY PRN EXT 08/31/16 22:45 09/30/16 22:44 08/31/16 23:30 1 APPLN Furosemide (Lasix Tab) 40 mg QAM PO 09/05/16 09:00 10/05/16 08:59 Objective Vital Signs Date Time Temp Pulse Resp B/P Pulse Ox O2 Delivery O2 Flow Rate FiO2 09/04/16 13:02 98 Nasal Cannula 3.0 09/04/16 12:23 36.7 57 24 109/88 93 Nasal Cannula 2.0 09/04/16 08:13 37.4 69 24 160/86 96 Nasal Cannula 2.0 09/04/16 08:01 98 Nasal Cannula 3.0 09/04/16 04:00 Nasal Cannula 2.0 09/04/16 03:35 37.6 67 22 150/81 95 Room Air 09/04/16 00:00 Nasal Cannula 2.0 09/03/16 23:08 37.6 66 22 174/90 96 Nasal Cannula 0.5 09/03/16 20:00 Nasal Cannula 2.0 09/03/16 18:53 37.2 69 20 116/66 95 Nasal Cannula 1.5 09/03/16 16:07 98 Nasal Cannula 3.0 09/03/16 14:47 37.0 59 20 139/68 94 Nasal Cannula 1.0 Physical Exam General Appearance: WD/WN, no apparent distress Eyes: normal inspection, sclerae normal ENT: + pertinent finding (Oral thrush) Neck: supple, no carotid bruits, trachea midline Respiratory/Chest: no respiratory distress, no accessory muscle use, + decreased breath sounds Cardiovascular: no gallop, no murmur, + irregularly irregular Abdomen: normal bowel sounds, non tender, soft Extremities: no calf tenderness, + pedal edema Neurologic/Psychiatric: alert, oriented x 3 Skin: normal color, no rash Laboratory Results Results Past 24 Hours Test 09/03/16 15:49 09/03/16 20:30 09/04/16 05:42 09/04/16 06:30 Range/Units Bedside Glucose 153 211 128 70-90 mg/dl White Blood Count 7.84 4.8-10.8 K/uL Red Blood Count 3.74 4.2-5.4 M/uL Hemoglobin 10.9 12.0-16.0 g/dL Hematocrit 33.9 37-47 % Mean Corpuscular Volume 90.6 80-100 fL Mean Corpuscular Hemoglobin 29.1 25-34 pg Mean Corpuscular Hemoglobin Concent 32.2 32-36 g/dl RDW Standard Deviation 53.9 36.4-46.3 fL RDW Coefficient of Variation 16.4 11.5-14.5 % Platelet Count 260 130-400 K/uL Mean Platelet Volume 9.6 7.4-10.4 fL Sodium Level 139 136-145 mmol/L Potassium Level 4.3 3.5-5.1 mmol/L Chloride Level 99 98-107 mmol/L Carbon Dioxide Level 35 21-32 mmol/L Anion Gap 5.0 3-11 mmol/L Blood Urea Nitrogen 14 7-18 mg/dl Creatinine 1.10 0.60-1.20 mg/dl Est Creatinine Clear Calc Drug Dose 43.7 ml/min Estimated GFR () 54.1 Estimated GFR (Non- 46.7 BUN/Creatinine Ratio 12.5 10-20 Random Glucose 121 70-99 mg/dl Calcium Level 8.7 8.5-10.1 mg/dl Test 09/04/16 11:23 Range/Units Bedside Glucose 136 70-90 mg/dl Assessment and Plan Assessment: Patient is an 80 year old female with a history of COPD, HTN, DM, and Hypothyroidism that presented with bilateral leg swelling and shortness of breath. Echocardiography showed diastolic heart failure as the cause and the patient was put on Lasix 40mg IV and well as supplemental oxygen. The patients clinical status has improved with treatment and she has lost 5 kg of fluid since admission. We have now transitioned her Lasix to PO formulation. We will also consult cardiology about anticoagulation for her atrial fibrillation which is currently rate controlled with metoprolol. A 2 step exercise has also been ordered for the patient to assess her oxygen requirement. 1) Acute Hypoxic Respiratory Failure 2/2 Diastolic CHF - ECHO: Grade 2 diastolic dysfunction - 2L Oxygen, wean as tolerated with goal of O2 < 90% - 2 Step Evaluation this afternoon - Convert IV to PO Lasix 40 mg Daily - Total of 5kg weight loss during admission from Diuresis - Continue Daily I/O - BMP tomorrow to follow K+ 2) Atrial Fibrillation - Metoprolol rate control - Consult cardiology - Will discuss anticoagulation with patient - Check PT/INR tomorrow 3) Hypertension - Continue home Losartan 100mg and Metoprolol 50mg BID 4) CKD Stage 3 - Cr 1.1 - Continue to follow BMP while on Lasix 5) Oral Thrush - Chronic 2/2 Inhaler Use - Nystatin swish and swallow 6) COPD - Advair Diskus BID - Albuterol 2.5mg q4h PRN 7) DM - Insulin sliding scale - sugars in 120s and 130s today so no coverage required - Lantus 10 units qhs - Holding home meds glipizide, metformin, and sitagliptin - HbA1c 7.2 8) Hypothyroidism - Continue Levothyroxine 112 mcg from home - TSH 6.98 (Elevated) - Follow up as outpatient 9) Neuropathic Pain - Gabapentin 300mg 10) PT/OT - Continue inpatient evaluation and treatment 11) DVT - Lovenox 12) Code Status: - Full Code Reviewed: Pt Seen/Exam by Me History Resident Physician Supervision Note: I interviewed and examined the patient. Discussed with Dr. Gonzalez and agree with findings and plan as documented in the note. Any exceptions or clarifications are listed here: Patient feeling better, is diuresing, remains rate controlled atrial fibrillation which is new for her. Vitals and telemetry reviewed Obese, no acute distress, alert awake oriented to Irregularly irregular, no murmurs gallops or rubs Decreased at the bases, no wheezes crackles or rhonchi Extremities 1+ pitting edema to the knees bilaterally This patient is an 80-year-old female here with acute on chronic diastolic CHF exacerbation, as well as new onset rate controlled atrial fibrillation. -Appreciate cardiology recommendations, discussed anticoagulation with patient and with her daughter over the phone. We'll start Eliquis and ask case management to baldwin it out with her pharmacy. No rate control needed at this point. Will need follow-up with cardiology as an outpatient -Switch to by mouth Lasix today and expect discharge possibly tomorrow with home PT at her personal [facility]. Documented By: Gema Noe
--- NOTE | 2016-09-04 15:59 | Cardiology Consultation ---
Cardiology Consultation Date of Consultation: Sep 04, 2016. Requesting Physician: Dr. Gonzalez Reason for Consultation: New-onset atrial fibrillation and edema Pt evaluation today including: conversation w/ patient, conversation w/ family , physical exam, lab review, review of studies, review of inpatient medication list History of Present Illness This is an 80-year-old woman who presented with several weeks of progressive fluid retention and peripheral edema in atrial fibrillation. 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 Evidently her edema was really not noticed by her, her family noticed it. Her family notes that she has a history of "tachycardia" for which she has been treated by Dr. Galindo. It is not clear what the tachycardia is, she has not been on an anticoagulant to the knowledge of her or her family. She saw Dr. Valencia several months ago and if she were in atrial fibrillation it likely would have been identified, therefore it seems that her atrial fibrillation is of relatively recent onset. She is asymptomatic with her from the standpoint of palpitations, she ambulates with a walker but denies symptoms of dyspnea on exertion recently. She has had no lightheadedness or dizziness. She was admitted and diuresed, her rate is well controlled. Currently she seems asymptomatic and her edema has improved. Evidently she has had a number of falls recently, however is seems not to have any injuries and uses a walker. Past Medical/Surgical History (1) Shortness of breath (2) Left knee DJD (3) COPD (chronic obstructive pulmonary disease) (4) Asthma Social History Smoking Status: Never Smoker History of Alcohol Use: No Review of Systems Constitutional: No fever, No weakness, No weight loss Respiratory: + shortness of breath, No cough, No dyspnea at rest, No sputum, No wheezing Cardiac: + edema, No chest pain Abdomen: No GI bleeding, No diarrhea, No nausea, No pain, No vomiting Female : No problem reported Neurologic: No balance problems, No numbness/tingling, No paralysis, No weakness Heme: No abnormal bleeding/bruising, No clotting problems Endo: No fatigue Skin: No problem reported All Other Systems: Reviewed and Negative Allergies Coded Allergies: No Known Allergies (Verified , 08/31/16) Medications Current Inpatient Medications Medications (Trade) Dose Ordered Sig/Deborah Route Start Time Stop Time Status Last Admin Dose Admin Enoxaparin Sodium (Lovenox Inj) 40 mg Q24H SC 09/01/16 09:00 10/01/16 08:59 09/04/16 07:55 40 MG Acetaminophen (Tylenol Tab) 650 mg Q4H PRN PO 08/31/16 20:45 09/30/16 20:44 Al Hydrox/Mg Hydrox/Simethicone (Maalox Max Susp) 15 ml Q4H PRN PO 08/31/16 20:45 09/30/16 20:44 Magnesium Hydroxide (Milk Of Magnesia Susp) 30 ml Q12H PRN PO 08/31/16 20:45 09/30/16 20:44 Ondansetron HCl (Zofran Inj) 4 mg Q6H PRN IV 08/31/16 20:45 09/30/16 20:44 Nitroglycerin (Nitrostat Tab) 0.4 mg UD PRN SL 08/31/16 20:45 09/30/16 20:44 Morphine Sulfate (MoRPHine SULFATE INJ) 2 mg Q30M PRN IV 08/31/16 20:45 09/14/16 20:44 Polyethylene (Miralax Powder Packet) 17 gm DAILY PRN PO 08/31/16 20:45 09/30/16 20:44 Albuterol Sulfate (Ventolin 0.083% 2.5MG/3ML Neb) 2.5 mg Q4H PRN INH 08/31/16 20:45 09/30/16 20:44 Aspirin (Ecotrin Tab) 81 mg DAILY PO 09/01/16 09:00 10/01/16 08:59 09/04/16 07:54 81 MG Citalopram Hydrobromide (celeXA TAB) 20 mg DAILY PO 09/01/16 09:00 10/01/16 08:59 09/04/16 07:54 20 MG Docusate Sodium (coLACE CAP) 100 mg DAILY PRN PO 08/31/16 20:45 09/30/16 20:44 Salmeterol Xinafoate/ Fluticasone (Advair Diskus 250/50 Inh) 1 puff BID INH 08/31/16 21:00 09/30/16 20:59 09/04/16 07:54 1 PUFF Gabapentin (Neurontin Cap) 300 mg QAM PO 09/01/16 09:00 10/01/16 08:59 09/04/16 07:55 300 MG Gabapentin (Neurontin Cap) 600 mg QPM PO 08/31/16 22:00 09/30/16 21:59 09/03/16 21:08 600 MG Levothyroxine Sodium (Synthroid Tab) 112 mcg DAILYBB PO 09/01/16 06:00 10/01/16 05:59 09/04/16 05:46 112 MCG Loratadine (Claritin Tab) 10 mg DAILY PO 09/01/16 09:00 10/01/16 08:59 09/04/16 07:54 10 MG Losartan Potassium (coZAAR TAB) 100 mg DAILY PO 09/01/16 09:00 10/01/16 08:59 09/04/16 07:54 100 MG Metoprolol Tartrate (Lopressor Tab) 50 mg BID PO 09/01/16 09:00 10/01/16 08:59 09/04/16 07:55 50 MG Nystatin (Mycostatin Susp) 5 ml DAILY PO 09/01/16 09:00 10/01/16 08:59 09/04/16 07:55 5 ML Oxybutynin Chloride (Ditropan-Xl Tab) 10 mg DAILY PO 09/01/16 09:00 10/01/16 08:59 09/04/16 07:54 10 MG Potassium Chloride (Klor-Con M10) 10 meq DAILY PO 09/01/16 09:00 10/01/16 08:59 09/04/16 07:55 10 MEQ Simvastatin (Zocor Tab) 10 mg HS PO 08/31/16 22:00 09/30/16 21:59 09/03/16 21:08 10 MG Insulin Aspart (novoLOG ASPART) SLIDING SCALE G... ACHS SC 08/31/16 21:00 09/30/16 20:59 09/03/16 21:09 3 UNITS Insulin Glargine (Lantus Solostar Pen) 10 unit QAM SC 09/01/16 09:00 10/01/16 08:59 Future hold 09/04/16 08:14 10 UNIT Pantoprazole Sodium (Protonix Tab) 40 mg QAM PO 09/01/16 09:00 10/01/16 08:59 09/04/16 07:55 40 MG Hydralazine HCl (HydrALAZINE INJ) 10 mg Q4 PRN IV. 08/31/16 20:45 09/30/16 20:44 Nystatin (Mycostatin Powder) 1 appln DAILY PRN EXT 08/31/16 22:45 09/30/16 22:44 08/31/16 23:30 1 APPLN Furosemide (Lasix Tab) 40 mg QAM PO 09/05/16 09:00 10/05/16 08:59 Physical Exam Vital Signs Past 12 Hours Date Time Temp Pulse Resp B/P Pulse Ox O2 Delivery O2 Flow Rate FiO2 09/04/16 15:05 37.2 70 22 144/59 92 Room Air 1.0 09/04/16 13:02 98 Nasal Cannula 3.0 09/04/16 12:23 36.7 57 24 109/88 93 Nasal Cannula 2.0 09/04/16 08:13 37.4 69 24 160/86 96 Nasal Cannula 2.0 09/04/16 08:01 98 Nasal Cannula 3.0 09/04/16 04:00 Nasal Cannula 2.0 Constitutional: General Apperance: heathly-appearing Level of Distress: NAD Psychiatric: Mental Status: active & alert Head: normocephalic Eyes: EOM: EOMI ENMT: normal ENT inspection, hearing grossly normal Neck: supple, no masses Lungs: Respiratory effort: no dyspnea, good air movement Auscultation: breath sounds normal, no wheezing Cardiovascular: Heart Auscultation: RRR, no murmurs, no rubs, no gallops Peripheral Pulses: Bruits: none appreciated Abdomen: Bowel Sounds: normal Inspection & Palpation: soft, no tenderness, guarding & rebound, no masses Musculoskeletal: normal strength (5/5 throughout) Extremities: no edema Neurologic: Cranial Nerves: grossly intact Sensation: grossly intact Data Laboratory Results: Last 24 Hours Test 09/03/16 15:49 09/03/16 20:30 09/04/16 05:42 09/04/16 06:30 Bedside Glucose 153 mg/dl 211 mg/dl 128 mg/dl White Blood Count 7.84 K/uL Red Blood Count 3.74 M/uL Hemoglobin 10.9 g/dL Hematocrit 33.9 % Mean Corpuscular Volume 90.6 fL Mean Corpuscular Hemoglobin 29.1 pg Mean Corpuscular Hemoglobin Concent 32.2 g/dl RDW Standard Deviation 53.9 fL RDW Coefficient of Variation 16.4 % Platelet Count 260 K/uL Mean Platelet Volume 9.6 fL Sodium Level 139 mmol/L Potassium Level 4.3 mmol/L Chloride Level 99 mmol/L Carbon Dioxide Level 35 mmol/L Anion Gap 5.0 mmol/L Blood Urea Nitrogen 14 mg/dl Creatinine 1.10 mg/dl Est Creatinine Clear Calc Drug Dose 43.7 ml/min Estimated GFR () 54.1 Estimated GFR (Non- 46.7 BUN/Creatinine Ratio 12.5 Random Glucose 121 mg/dl Calcium Level 8.7 mg/dl Test 09/04/16 11:23 Bedside Glucose 136 mg/dl Imaging: An echocardiogram here demonstrates normal left ventricular size and function with moderate LV hypertrophy, severe biatrial enlargement, a left ventricular ejection fraction which is normal. She has mild aortic stenosis, mild mitral regurgitation EKG: An electrocardiogram on admission demonstrates atrial fibrillation with a heart rate of 67 bpm, possible inferior and anterior infarcts of indeterminate age. Telemetry reviewed: Atrial fibrillation with a controlled heart rate Assessment & Plan #1. Atrial fibrillation: She has what we assume is recent onset of atrial fibrillation, although she has some history of "tachycardia". Since her or the family do not recognize atrial fibrillation I suspect she did not have that although it is possible. In any case her heart rate is well controlled and my feeling would be to leave her in atrial fibrillation, at least for now, and she seems to be asymptomatic other than the edema. Her atrial size is very large and although we could entertain cardioversion, it wouldn't be likely to last and if she is asymptomatic there is probably no good indication to do it. She should be anticoagulated however, I would use one of the newer agents. I will start eliquis, I will give her samples on discharge and if she can't get eliquis based on her insurance we can switch to a different agent. Although she had the aneurysm it is been repaired and that should not be a contraindication. #2. Edema: I suspect her edema was due to going into atrial fibrillation, her kidney function is good as is her left ventricular function so I don't see any other clear reason why she has it and she has responded well to diuresis. It sounds as though she was not on a diuretic before. I would recommend continuing her on a diuretic as an outpatient, at least a low dose. Thank you for allowing me to participate in her care.
[2016-09-04] MEDS: APIXABAN 2.5 MG TAB PO SCH (21:39)
[2016-09-04] MEDS: SIMVASTATIN 10 MG TAB PO SCH (21:40)
[2016-09-05 03:44] VITALS: BP 158/78; PULSE 71; TEMP 37.2; O2SAT 97
[2016-09-05 06:00] LABS: HEMATOCRIT 32.9 % (37-47); MEAN CELL VOLUME 90.1 fL (80-100); MEAN CORPUSCULAR HEMOGLOBIN 29.9 pg (25-34); MEAN CORPUSCULAR HGB CONC 33.1 g/dl (32-36); MEAN PLATELET VOLUME 9.7 fL (7.4-10.4); PLATELET COUNT 258 K/uL (130-400); RED BLOOD COUNT 3.65 M/uL (4.2-5.4); WHITE BLOOD COUNT 7.44 K/uL (4.8-10.8)
[2016-09-05] MEDS: LEVOTHYROXINE 112 MCG TAB PO SCH (06:00)
[2016-09-05 06:04] LABS: INR 1.1 (0.9-1.1); PROTHROMBIN TIME (PATIENT) 12.3 SECONDS (9.0-12.0)
[2016-09-05 06:32] LABS: BUN/CREATININE RATIO 13.2 (10-20); CALCIUM 8.7 mg/dl (8.5-10.1)
[2016-09-05] MEDS: INSULIN ASPART 100 UNITS/ML 3 ML PEN SC SCH ×2 (07:00→11:43)
--- NOTE | 2016-09-05 07:31 | Family Medicine Progress Note ---
Progress Note Date of Service Sep 05, 2016.
[2016-09-05 07:47] VITALS: BP 168/75; PULSE 61; TEMP 36.6; O2SAT 96
[2016-09-05] MEDS: FLUTICASONE/SALMETEROL 250/50 (ADVAIR) 14 PUFF/1 INHALER INH SCH (08:38)
[2016-09-05] MEDS: METOPROLOL TARTRATE 25 MG TAB PO SCH (08:38)
[2016-09-05] MEDS: ASPIRIN 81 MG ECTAB PO SCH (08:38)
[2016-09-05] MEDS: CITALOPRAM 20 MG TAB PO SCH (08:38)
[2016-09-05] MEDS: LORATADINE 10 MG TAB PO SCH (08:39)
[2016-09-05] MEDS: LOSARTAN POTASSIUM 50 MG TAB PO SCH (08:39)
[2016-09-05] MEDS: APIXABAN 2.5 MG TAB PO SCH (08:40)
[2016-09-05] MEDS: OXYBUTYNIN CHLORIDE 5 MG TABCR PO SCH (08:40)
[2016-09-05] MEDS: POTASSIUM CHLORIDE 10 MEQ TABCR PO SCH (08:40)
[2016-09-05] MEDS: PANTOprazole SOD 40 MG TAB PO SCH (08:41)
[2016-09-05] MEDS: NYSTATIN SUSP 500,000 U/5 ML UDC PO SCH (08:41)
[2016-09-05] MEDS: GABAPENTIN 300 MG CAP PO SCH (08:41)
[2016-09-05] MEDS: INSULIN GLARGINE SOLOSTAR 100 UNITS/ML 3 ML PEN SC SCH (08:48)
[2016-09-05] MEDS ORDERED: FUROSEMIDE 40 MG TAB PO SCH (09:00)
[2016-09-05] MEDS ORDERED: LSX40 PO (09:50)
--- NOTE | 2016-09-05 09:56 | Discharge Instructions ---
Discharge Instructions Date of Service Sep 05, 2016. Admission Reason for Admission: Shortness Of Breath, Swelling Of Lower Extremity Discharge Discharge Diagnosis / Problem: Diastolic Congestive Heart Failure, Atrial fibrillation Discharge Goals Goal(s): Decrease discomfort, Improve function Activity Recommendations Activity Limitations: per Instructions/Follow-up section Lifting Limitations: none Exercise/Sports Limitations: gradually increase as tolerated (you will have home Physical Therapy services provided) . Instructions / Follow-Up Instructions / Follow-Up - Follow up with Dr Carson's office (Cardiology) on 09/21 at 1pm - Follow up with your primary care physician in the next week as scheduled for you -You do NOT require oxygen at home - Take Eliquis 5mg one tab twice daily (once in the morning and once in the afternoon)-this is a blood thinner to prevent you from having a stroke because atrial fibrillation can cause strokes. You have been given samples from the [employer], but the cost in the future at the pharmacy will be $158/month. If this cost is too high for you, then talk to your [employer] about switching to coumadin (Warfarin) - Take Lasix 40mg one tab every morning to keep excess fluid off your body - In any event that you have worsening shortness of breath, fever, nausea, vomiting, or any symptoms that are of concern please contact your doctor Call 911 and go to the Emergency Room if: * You have tightness or pain in your chest that does not go away with rest or Nitroglycerin * You are very short of breath even with rest Call your doctor if any of the following symptoms or problems start or get worse: * Shortness of breath or difficulty breathing * Wake up at night short of breath * Chest pain * Cough * Swelling of your hands, fee, or legs * More fatigued or tired with your normal activity * Palpitations - sudden fast heart beats WEIGHT * Weigh yourself every morning after using the bathroom. * Use the same scale. * Wear the same amount of clothing. * Write your weight down on your chart. * Call your doctor if you gain more than 2-3 pounds in 1-2 days. MEDICATIONS * Use this discharge instruction sheet for instructions. * Take your medications at the time your doctor ordered. * Do not skip a dose of your medicines. * If you miss a dose of medicine, take as soon as possible, but DO NOT DOUBLE A DOSE. * Read your medicine information when you get home. * Know all of the side effects of your medicine. * Call your doctor's office if you have any side effects. * Be sure all of your doctors know what medicine and herbs you take (including cold, flu, and herbal medicine). * Pain Medicine: If you do not get relief from your pain, please call your doctor for help. Take the following with you to your follow-up doctor appointments: * Weight Chart * Medication List * List of questions Do not drink excessive alcohol, beer or wine. Current Hospital Diet Patient's current hospital diet: AHA Diet (Heart Healthy), Diabetes Type 2 Diet Discharge Diet Recommended Diet: Low Sodium Diet (2gm Na), Diabetes Type 2 Diet Fluid Restriction: 1800 ml (7 cups) Procedures Procedures Performed: Echocardiogram Chest xray Pending Studies Studies pending at discharge: no Laboratory Results Hemoglobin A1c Test 09/01/16 05:16 Range/Units Estimated Average Glucose 160 mg/dl Hemoglobin A1c 7.2 H 4.5-5.6 % Medical Emergencies . Who to Call and When: Medical Emergencies: If at any time you feel your situation is an emergency, please call 911 immediately. . Non-Emergent Contact Non-Emergency issues call your: Primary Care Provider, [employer] Call Non-Emergent contact if: you have a fever, you have any medication questions . . "Provider Documentation" section prepared by Star Gonzalez. VTE Core Measure Inpt VTE Proph given/why not?: Enoxaparin (Lovenox)SQ, Other Anticoagulation ( Eliquis)
[2016-09-05] MEDS ORDERED: APIX1TAB3 PO (10:37)
[2016-09-05] MEDS ORDERED: TYL325X PO (10:37)
[2016-09-05] MEDS ORDERED: NYSP EXT (10:37)
[2016-09-05 11:27] VITALS: PULSE 61; TEMP 36.6; O2SAT 96
[2016-09-05 12:00] VITALS: BP 113/74
--- NOTE | 2016-09-05 19:14 | Discharge Summary ---
Discharge Summary Date of Service Sep 05, 2016. (Star Gonzalez MD) Discharge Summary Admission Date: Aug 31, 2016 at 20:40 Discharge Date: Sep 05, 2016 Discharge Disposition: Home Principal Diagnosis: Diastolic Congestive Heart Failure Problems/Secondary Diagnoses: (1) Asthma Status: Chronic Immunizations: Have You Had Influenza Vaccine: Yes Influenza Vaccine Date: Feb 25, 2007 History of Tetanus Vaccine?: Unknown History of Pneumococcal: Yes Pneumococcal Date: Feb 25, 2005 History of Hepatitis B Vaccine: Unknown Procedures: CXR: Congestive Heart Failure (Star Gonzalez MD) Problems/Secondary Diagnoses: Paroxysmal atrial fibrillation Long-term anticoagulation Acute hypoxemic respiratory failure COPD HTN DM2 Chronic kidney disease stage III Hypothyroidism Dyslipidemia Seasonal allergies Constipation Michelle intertrigo Oral candidiasis GERD Overactive bladder Peripheral neuropathy Consultations: Cardiology (Gema Noe MD) Medication Reconciliation New Medications: Apixaban (Eliquis) 5 Mg Tab 5 MG PO BID for 30 Days, #60 TAB Acetaminophen (Tylenol) 325 Mg Tab 650 MG PO Q4H PRN for Pain or Fever for 30 Days, #240 TAB Furosemide (Furosemide) 40 Mg Tab 40 MG PO QAM for 30 Days, #30 TAB Nystatin (Nystop) 45 Appln/15 Gm Powd 1 APPLN EXT DAILY PRN for Affected Skin Folds for 30 Days, #1 BTL Continued Medications: Albuterol Sulf (Albuterol Sulfate 0.083% For Inh) 3 Ml Nebu 3 ML INH Q4H PRN for Shortness of Breath Ascorbic Acid (Vitamin C) 500 Mg Tab 500 MG PO QAM Aspirin (Aspirin Ec) 81 Mg Tab 81 MG PO DAILY Cholecalciferol (Vitamin D3) 1,000 Unit Tab 5000 INTER.UNIT PO DAILY, TAB 3 Refills Citalopram (Citalopram Hydrobromide) 20 Mg Tab 20 MG PO DAILY Cyanocobalamin (Vitamin B-12) 1,000 Mcg Tab 1000 MCG PO DAILY, TAB Docusate Sodium (Colace) 100 Mg Cap 100 MG PO DAILY PRN for Constipation Fluticasone Prop/Salmeterol (Advair Diskus 250/50 60 Dose) 1 Ea Aerp 1 PUFF PO BID, #60 Gabapentin (Gabapentin) 300 Mg Cap 300 MG PO QAM Gabapentin (Gabapentin) 300 Mg Cap 600 MG PO QPM Glipizide (Glipizide Xl) 5 Mg Tabcr 5 MG PO DAILY, #30 Levothyroxine Sodium (Levothyroxine Sodium) 112 Mcg Tab 112 MCG PO QAM, #30 Loratadine (Claritin) 10 Mg Tab 10 MG PO DAILY, TAB Losartan Potassium (Cozaar) 100 Mg Tab 100 MG PO DAILY, TAB Magnesium Oxide (Mg Supplement (Magnesium) 400 Mg Cap 400 MG PO BID Metformin HCl (Metformin HCl) 500 Mg Tab 1000 MG PO DAILY Metoprolol Tartrate (Lopressor) (Lopressor) 25 Mg Tab 50 MG PO BID, 0 Refills Multivitamin (Multivitamin) Tab 1 TAB PO DAILY, TAB Nystatin (Nystatin Suspension) 1 Ml Susp 1 TSP PO DAILY for 4 Days Omeprazole (Prilosec) 20 Mg Capcr 20 MG PO BID, CAP Oxybutynin Chloride (Oxybutynin Chloride Er) 5 Mg Tab 10 MG PO DAILY Potassium Chloride (Micro-K Ext Rel) 10 Meq Capcr 10 MEQ PO DAILY, 0 Refills Simvastatin (Simvastatin) 10 Mg Tab 10 MG PO HS Sitagliptin (Januvia) 50 Mg Tab 50 MG PO DAILY, TAB Referrals At Discharge Follow up Referrals: Lan Support Specialist Referral - Within 1-2 Weeks with Acosta Carson M.D. Physician Referral - Within 1 Week with Ramana Antoine M.D. Discharge Exam Review of Systems: Constitutional: No chills, No fever Respiratory: + shortness of breath, No cough, No wheezing Cardiovascular: No chest pain Abdomen: No constipation, No diarrhea, No nausea, No pain, No vomiting Genitourinary - Female: No dysuria Physical Exam: General Appearance: WD/WN, no apparent distress Eyes: normal inspection, sclerae normal Neck: supple, no carotid bruits Respiratory/Chest: chest non-tender, no respiratory distress, no accessory muscle use, + decreased breath sounds Cardiovascular: no gallop, no murmur, normal peripheral pulses, + irregularly irregular Abdomen / GI: normal bowel sounds, non tender, soft Extremities: normal inspection, no calf tenderness Neurologic/Psychiatric: alert, normal mood/affect, oriented x 3 Skin: normal color, warm/dry, no rash (Star Gonzalez MD) Hospital Course Assessment: Patient is an 80 year old female with a history of COPD, HTN, DM, and Hypothyroidism that presented with bilateral leg swelling and shortness of breath. Patient has a CXR done that showed a heart failure pattern and that was followed with an ECHO that showed Grade 2 diastolic dysfunction. She was started on IV Lasix 40mg and over the course of her hospitalization was diuresed over 7kg. She was transitioned to PO Lasix 40mg prior to discharge and sent home on that dose of lasix. Her shortness of breath continued to improve over the course of the hospitalization and did not require oxygen on discharge after passing a 2 step. During the hospitalization she was also found to be rate controlled on Afib but was not on anticoagulation and was started on Eliquis 5mg PO BID and will follow with Dr. Carson as an outpatient. Instructions for Hospital Bed - Elevate HOB to 30 degrees or greater - Patient should be frequently repositioned Total Time Spent: Greater than 30 minutes This includes examination of the patient, discharge planning, medication reconciliation, and communication with other providers. (Star Gonzalez MD) Discharge Instructions Please refer to the electronic Patient Visit Report (Discharge Instructions) for additional information. (Star Gonzalez MD) Additional Copies To Gregorio Sawyer MD Reviewed: Pt Seen/Exam by Me (Gema Noe MD) History Resident Physician Supervision Note: I interviewed and examined the patient. Discussed with Dr. Gonzalez and agree with findings and plan as documented in the note. Any exceptions or clarifications are listed here: Patient feeling better, is diuresing, remains rate controlled atrial fibrillation which is new for her. Vitals and telemetry reviewed Obese, no acute distress, alert awake oriented to Irregularly irregular, no murmurs gallops or rubs Decreased at the bases, no wheezes crackles or rhonchi Extremities 1+ pitting edema to the knees bilaterally This patient is an 80-year-old female here with acute on chronic diastolic CHF exacerbation, as well as new onset rate controlled atrial fibrillation. -Appreciate cardiology recommendations, discussed anticoagulation with patient and with her daughter. Start Eliquis and samples to be given by steam fitter supervisor prior to discharge. If cost going to be prohibitive in the future, she can be switched to Coumadin as an outpatient. No rate control needed at this point. Will need follow-up with cardiology as an outpatient. Switch to by mouth Lasix and discharge to home with [facility]. 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 6.98 - Continue Levothyroxine 112 mcg which is her home dose. Recommend repeat TSH in 2-3 weeks after discharge with PCP Neuropathic Pain-stable - Gabapentin 300mg (Gema Noe MD)
== END 2016-09-05 17:57 | disposition home health service (06) | DRG 291 ==
LOC: ENRESERVDT → ENRESERVTM → C.EDB 17:29 → C.2E 20:40
PROVIDERS: ADMIT Hospitalist; ATTEND Family Medicine
DX: I13.0 Hypertensive heart and chronic kidney disease with heart failure and stage 1 through stage 4 chronic kidney disease, or unspecified chronic kidney disease (principal); I50.33 Acute on chronic diastolic (congestive) heart failure; J96.01 Acute respiratory failure with hypoxia; B37.0 Candidal stomatitis; J44.9 Chronic obstructive pulmonary disease, unspecified; I25.10 Atherosclerotic heart disease of native coronary artery without angina pectoris; E03.9 Hypothyroidism, unspecified; I48.0 Paroxysmal atrial fibrillation; F32.9 Major depressive disorder, single episode, unspecified; N18.3 Chronic kidney disease, stage 3 (moderate); K21.9 Gastro-esophageal reflux disease without esophagitis; R26.9 Unspecified abnormalities of gait and mobility; E53.8 Deficiency of other specified B group vitamins; E78.00 Pure hypercholesterolemia, unspecified; E78.5 Hyperlipidemia, unspecified; B37.2 Candidiasis of skin and nail; L30.4 Erythema intertrigo; G62.9 Polyneuropathy, unspecified; E11.22 Type 2 diabetes mellitus with diabetic chronic kidney disease; J45.909 Unspecified asthma, uncomplicated; K59.00 Constipation, unspecified; G89.29 Other chronic pain; N32.81 Overactive bladder; R60.0 Localized edema; N32.89 Other specified disorders of bladder; Z86.79 Personal history of other diseases of the circulatory system; Z79.82 Long term (current) use of aspirin; Z79.51 Long term (current) use of inhaled steroids; Z79.84 Long term (current) use of oral hypoglycemic drugs; Z79.899 Other long term (current) drug therapy

== ENCOUNTER → 2017-01-05 | Outpatient (CLI) | payer OTHER ==
[~2017-01-05] MED LIST changes: +ADVIN25/60 PO; -ASPEC325 PO; +ASPI81TA28 PO; +CHOL1000 PO; -EVS60 PO; -FRRG PO; -GLC5 PO; +GLCSR5 PO; -HYDR-5688 PO; +LEVO112T4 PO; -LEVO175T3 PO; +LSX40 PO; -MELA3TAB PO; +NYSP EXT; +NYSS/ PO; -OXYC-409 PO; +TYL325X PO; -VEGETABLE PO; -[UNRECOGNIZED DRUG - CODE] PO
[2017-01-06 07:51] LABS: ESTIMATED AVERAGE GLUCOSE 180 mg/dl; HA1C FLAG Normal (Normal)
== END | disposition home or self-care (01) ==
LOC: C.LABPBG 11:59
PROVIDERS: ATTEND Neuromusculoskeletal Medicine & OMM
DX: Z00.00 Encounter for general adult medical examination without abnormal findings (principal); E11.9 Type 2 diabetes mellitus without complications

== ENCOUNTER → 2017-05-17 | Outpatient (CLI) | payer OTHER ==
[2017-05-17 17:43] LABS: BLOOD UREA NITROGEN 15 mg/dl (7-18); BUN/CREATININE RATIO 14.2 (10-20); CALCIUM 10.1 mg/dl (8.5-10.1); CARBON DIOXIDE 30 mmol/L (21-32); CHLORIDE 98 mmol/L (98-107); CREATININE 1.08 mg/dl (0.60-1.20); GLUCOSE 91 mg/dl (70-99); POTASSIUM 4.2 mmol/L (3.5-5.1); SODIUM 134 mmol/L (136-145)
[2017-05-18 06:10] LABS: ESTIMATED AVERAGE GLUCOSE 148 mg/dl; HA1C FLAG Normal (Normal)
== END | disposition home or self-care (01) ==
LOC: C.LABPBG 11:16
PROVIDERS: ATTEND Family Medicine
DX: E11.42 Type 2 diabetes mellitus with diabetic polyneuropathy (principal)

== ENCOUNTER → 2017-06-30 | Outpatient (CLI) | payer OTHER ==
[~2017-06-30] MED LIST changes: +GABA-1219 PO; -GABA1CAP4 PO
== END | disposition home or self-care (01) ==
LOC: C.LABSPEC 16:29
PROVIDERS: ATTEND Family Medicine
DX: J02.9 Acute pharyngitis, unspecified (principal); B37.0 Candidal stomatitis